=== PATIENT | female | born 1975 | race Hispanic/Latino ===

== ENCOUNTER 2017-12-19 11:21 | Emergency (ER) | payer SELFPAY ==
[2017-12-19] MEDS ORDERED: NA CHLORIDE 0.9% 1,000 ML ONE (12:00)
--- NOTE | 2017-12-19 12:19 | RAD REPORT ---
EXAM DESCRIPTION: RAD - Chest Pa And Lat (2 Views) - 12/19/2017 12:12 pm CLINICAL HISTORY: COUGH Chest pain. COMPARISON: Chest Pa And Lat (2 Views) dated 01/17/2017 FINDINGS: The lungs are clear. The heart is normal in size. No displaced fractures. IMPRESSION: No acute or concerning finding suspected.
--- NOTE | 2017-12-19 12:27 | EDPHYS ---
Physician Documentation [facility] Name: Julieta Gauthier Age: 42 yrs Sex: Female : 1975 Arrival Date: 12/19/2017 Time: 11:26 Bed 14 Private MD: None, None ED Physician Eduardo Devi HPI: 12/19 11:49 This 42 yrs old Female presents to ER via Ambulatory with complaints of Flu rn Symptoms. 11:49 The patient or guardian reports cough, flu symptoms, low-grade fever, myalgias. Onset: rn The symptoms/episode began/occurred 3 day(s) ago. Severity of symptoms: At their worst the symptoms were mild, in the emergency department the symptoms are unchanged. The patient has not experienced similar symptoms in the past. The patient has not recently seen a physician. Reports subjective fever, chills, muscle aches, cough, runny nose, congestion. 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 . 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 - Social history:: Smoking status: Patient uses tobacco products, smokes one pack cigarettes per day. - Ebola Screening: : No symptoms or risks identified at this time. - Family history:: not pertinent. - Hospitalizations: : No recent hospitalization is reported. ROS: 11:49 Constitutional: + chills, no fever Eyes: Negative for injury, pain, redness, and cardiac rn, ENT: + nasal congestion and runny nose Neck: Negative for injury, pain, and swelling, Cardiovascular: Negative for chest pain, palpitations, and edema, Respiratory: + cough Abdomen/GI: Negative for abdominal pain, nausea, vomiting, diarrhea, and constipation, MS/Extremity: Negative for injury and deformity, + muscle aches Skin: Negative for injury, rash, and discoloration, Neuro: + generalized weakness and headache Exam: 11:49 Constitutional: This is a well developed, well nourished patient who is awake, alert, rn and in no acute distress. On phone speaking full sentences when I arrived to room. Head/Face: Normocephalic, atraumatic. Eyes: Pupils equal round and reactive to light, extra-ocular motions intact. Lids and lashes normal. Conjunctiva and sclera are non-icteric and not injected. Cornea within normal limits. Periorbital areas with no swelling, redness, or edema. ENT: Absent tonsils, mild pharyngeal erythema, no stridor Neck: Trachea midline. Supple, full range of motion without nuchal rigidity, or vertebral point tenderness. No Meningismus. + non-tender cervical bilateral LAD Vital Signs: 11:39 BP 116 / 70; Pulse 88; Resp 18 S; Temp 98.7(O); Pulse Ox 100% on R/A; Weight 95.25 kg aa5 (R); Height 5 ft. 3 in. (160.02 cm) (R); Pain 10/10; 13:15 BP 120 / 74; Pulse 87; Resp 18; Pulse Ox 100% on R/A; hj 11:39 Body Mass Index 37.20 (95.25 kg, 160.02 cm) aa5 MDM: 11:42 Patient medically screened. rn 11:52 Differential Diagnosis: Bronchitis Influenza Upper Respiratory Infection Sinusitis rn Viral Syndrome Pneumonia. 11:53 Counseling: I had a detailed discussion with the patient and/or guardian regarding: rn smoking cessation. 12:25 Data reviewed: vital signs, nurses notes, lab test result(s), radiologic studies, plain rn films, and as a result, I will discharge patient. Special discussion: I discussed with the patient/guardian in detail that at this point there is no indication for admission to the hospital. It is understood, however, that if the symptoms persist or worsen the patient needs to return immediately for re-evaluation. 12/19 11:48 Order name: Flu; Complete Time: 12:25 rn 12/19 11:52 Order name: Strep rn 12/19 11:48 Order name: XRAY Chest Pa And Lat (2 Views); Complete Time: 12:25 rn 12/19 11:52 Order name: Group A Streptococcus Rapid Sc; Complete Time: 12:25 EDAZ 12/19 13:05 Order name: Throat Culture [facility] 12/19 11:48 Order name: IV Start; Complete Time: 11:58 rn Administered Medications: 11:48 Drug: NS 0.9% 1000 ml Route: IV; Rate: 1000 ml; Site: right antecubital; hj 12:28 Follow up: IV Status: Infusion continued hj Disposition: 12/19/17 12:26 Discharged to Home. Impression: Cough, Viral upper respiratory infection. - Condition is Stable. - Discharge Instructions: Upper Respiratory Infection, Adult, Viral Respiratory Infection, Cough, Adult. - Medication Reconciliation Form, Thank You Letter, Antibiotic Education, Prescription Opioid Use, Work release form form. - Follow up: Private Physician; When: As needed; Reason: Recheck today's complaints, Re-evaluation by your physician. - Problem is an ongoing problem. - Symptoms are unchanged. Signatures: Dispatcher [employer] EDEduardo Encinas MD MD rn Calderon, Audri RN RN aa5 Mk Cruz RN RN Corrections: (The following items were deleted from the chart) 13:34 12:26 12/19/2017 12:26 Discharged to Home. Impression: Cough; Viral upper respiratory hj infection. Condition is Stable. Forms are Medication Reconciliation Form, Thank You Letter, Antibiotic Education, Prescription Opioid Use. Follow up: Private Physician; When: As needed; Reason: Recheck today's complaints, Re-evaluation by your physician. Problem is an ongoing problem. Symptoms are unchanged. rn
--- NOTE | 2017-12-19 12:27 | ER ---
Nurse's Notes [facility] Name: Julieta Gauthier Age: 42 yrs Sex: Female : 1975 Arrival Date: 12/19/2017 Time: 11:26 Bed 14 Private MD: None, None Diagnosis: Cough;Viral upper respiratory infection Presentation: 12/19 11:37 Presenting complaint: Patient states: cough, congestion, runny nose, chills x 1 month aa5 ago. Pt states "I thought I was getting better and today it was worse". Pt also reports headache to whole head. Transition of care: patient was not received from another setting of care. Onset of symptoms was December 2017. Risk Assessment: Do you want to hurt yourself or someone else? Patient reports no desire to harm self or others. Initial Sepsis Screen: Does the patient meet any 2 criteria? No. Patient's initial sepsis screen is negative. Does the patient have a suspected source of infection? No. Patient's initial sepsis screen is negative. Care prior to arrival: None. 11:37 Method Of Arrival: Ambulatory aa5 11:37 Acuity: GIANNA 3 aa5 Triage Assessment: 11:42 General: Appears in no apparent distress. uncomfortable, Behavior is calm, cooperative, hj appropriate for age. Pain: Denies pain. 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 - Social history:: Smoking status: Patient uses tobacco products, smokes one pack cigarettes per day. - Ebola Screening: : No symptoms or risks identified at this time. - Family history:: not pertinent. - Hospitalizations: : No recent hospitalization is reported. Screenin:42 Abuse screen: Denies threats or abuse. Nutritional screening: No deficits noted. hj Tuberculosis screening: No symptoms or risk factors identified. Fall Risk None identified. Assessment: 11:43 General: Appears in no apparent distress. uncomfortable, Behavior is calm, cooperative, hj appropriate for age. General: chest congestion, runny nose;. Pain: Denies pain. Neuro: Level of Consciousness is awake, alert, obeys commands, Oriented to person, place, time, situation, Appropriate for age. Cardiovascular: Capillary refill < 3 seconds Patient's skin is warm and dry. Respiratory: Airway is patent Respiratory effort is even, unlabored, Respiratory pattern is regular, symmetrical. GI: No signs and/or symptoms were reported involving the gastrointestinal system. : No signs and/or symptoms were reported regarding the genitourinary system. EENT: No signs and/or symptoms were reported regarding the EENT system. Derm: No signs and/or symptoms reported regarding the dermatologic system. Musculoskeletal: No signs and/or symptoms reported regarding the musculoskeletal system. 12:27 Reassessment: returned from xray, awaiting results;. 12:36 Reassessment: Patient appears in no apparent distress at this time. awaiting fluids to be finished; Patient states feeling better. Patient states symptoms have improved. 13:14 Reassessment: fluids to be finished before D/C;. Vital Signs: 11:39 BP 116 / 70; Pulse 88; Resp 18 S; Temp 98.7(O); Pulse Ox 100% on R/A; Weight 95.25 kg aa5 (R); Height 5 ft. 3 in. (160.02 cm) (R); Pain 10/10; 13:15 BP 120 / 74; Pulse 87; Resp 18; Pulse Ox 100% on R/A; hj 11:39 Body Mass Index 37.20 (95.25 kg, 160.02 cm) aa5 ED Course: 11:26 Patient arrived in ED. mr 11:26 None, None is Private Physician. mr 11:38 Triage completed. aa5 11:38 Arm band placed on. aa5 11:41 Mk Cruz, RN is Primary Nurse. 11:42 Eduardo Devi MD is Attending Physician. rn 11:42 Patient has correct armband on for positive identification. Bed in low position. Call light in reach. 11:48 Inserted saline lock: 22 gauge in right antecubital area, using aseptic technique. 11:55 Flu Sent. [facility] 11:57 Strep Sent. [facility] 11:57 Group A Streptococcus Rapid Sc Sent. [facility] 11:57 Flu and/or RSV swab sent to lab. Strep swab sent to lab. [facility] 12:13 XRAY Chest Pa And Lat (2 Views) In Process Unspecified. EDMS Administered Medications: 11:48 Drug: NS 0.9% 1000 ml Route: IV; Rate: 1000 ml; Site: right antecubital; 12:28 Follow up: IV Status: Infusion continued Outcome: 12:26 Discharge ordered by . rn 13:34 Patient left the ED. tera Signatures: Dispatcher [employer] EDJudith Schrader Roman, MD MD rn Calderon, Audri, RN RN aa5 Mk Cruz RN RN hj Martinez, Maria [facility]
[2017-12-19 13:48] VITALS: TEMP 98.7; O2SAT 100
[2017-12-19 13:50] VITALS: BP 120/74
== END 2017-12-19 13:34 | disposition home or self-care (01) ==
LOC: ER 11:21
DX: J06.9 Acute upper respiratory infection, unspecified (principal); F17.210 Nicotine dependence, cigarettes, uncomplicated
CPT/HCPCS: 71046; 87070; 87081; 87804; 96360; 99284; J7030

== ENCOUNTER 2018-08-14 22:22 | Emergency (ER) | payer SELFPAY ==
[2018-08-15] MEDS ORDERED: KETOROLAC 30 MG/ML INJ ONE (00:11)
--- NOTE | 2018-08-15 00:15 | ER ---
Nurse's Notes [facility] Name: Julieta Gauthier Age: 43 yrs Sex: Female : 1975 Arrival Date: 08/14/2018 Time: 22:24 Bed 27 Private MD: None, None Diagnosis: Gingivitis and periodontal diseases;Pulpitis Presentation: 08/14 22:27 Presenting complaint: Patient states: lower R toothache since this am. Swelling noted aa1 to R side of face. Transition of care: patient was not received from another setting of care. Onset of symptoms was August 14, 2018. Risk Assessment: Do you want to hurt yourself or someone else? Patient reports no desire to harm self or others. Initial Sepsis Screen: Does the patient meet any 2 criteria? No. Patient's initial sepsis screen is negative. Does the patient have a suspected source of infection? No. Patient's initial sepsis screen is negative. Care prior to arrival: None. 22:27 Method Of Arrival: Ambulatory aa1 22:27 Acuity: GIANNA 4 aa1 Triage Assessment: 22:29 General: Appears in no apparent distress. uncomfortable, Behavior is calm, cooperative, aa1 appropriate for age. 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 - Social history:: Smoking status: Patient uses tobacco products, smokes one-half pack cigarettes per day. - Ebola Screening: : No symptoms or risks identified at this time. Screenin:43 Abuse screen: Denies threats or abuse. Denies injuries from another. Nutritional aa1 screening: No deficits noted. Tuberculosis screening: No symptoms or risk factors identified. Fall Risk None identified. Assessment: 22:43 General: Appears in no apparent distress. uncomfortable, Behavior is calm, cooperative, aa1 appropriate for age. Pain: Complains of pain in right cheek, right jaw and mouth Pain currently is 10 out of 10 on a pain scale. Quality of pain is described as throbbing, Pain began this morning Is continuous. Neuro: Level of Consciousness is awake, alert, obeys commands, Oriented to person, place, time, situation. Respiratory: Airway is patent Respiratory effort is even, unlabored, Respiratory pattern is regular, symmetrical. GI: No signs and/or symptoms were reported involving the gastrointestinal system. : No signs and/or symptoms were reported regarding the genitourinary system. EENT: Reports pain in mouth. Derm: Skin is intact, is healthy with good turgor, Skin is pink, warm \T\ dry. Musculoskeletal: Circulation, motion, and sensation intact. Capillary refill < 3 seconds, Swelling present in right cheek and right jaw. 08/15 00:43 Reassessment: Patient states feeling better. mg2 Vital Signs: 08/14 22:29 BP 124 / 65; Pulse 87; Resp 16; Temp 97.7; Pulse Ox 100% on R/A; Weight 95.25 kg; aa1 Height 5 ft. 3 in. (160.02 cm); Pain 10/10; 08/15 00:42 BP 122 / 78; Pulse 80; Resp 18; Temp 98; Pulse Ox 100% on R/A; Pain 2/10; mg2 08/14 22:29 Body Mass Index 37.20 (95.25 kg, 160.02 cm) aa1 ED Course: 08/14 22:24 Patient arrived in ED. mr 22:24 None, None is Private Physician. mr 22:29 Triage completed. aa1 22:29 Arm band placed on left wrist. Patient placed in waiting room, Patient notified of wait aa1 time. 22:43 Patient has correct armband on for positive identification. aa1 23:26 Beau Colmenares MD is Attending Physician. pkl 23:30 Navdeep Davis, BRIELLE is Primary Nurse. mg2 23:34 Roger Wu PA is PHCP. jr8 23:34 Beau Colmenares MD is Attending Physician. jr8 08/15 00:14 Jeb Reynoso DDS is Referral Physician. jr8 00:40 No provider procedures requiring assistance completed. mg2 00:43 Patient did not have IV access during this emergency room visit. mg2 Administered Medications: 00:01 Drug: TORadol - Ketorolac 15 mg Route: IM; Site: right deltoid; ao 00:42 Follow up: Response: No adverse reaction; Marked relief of symptoms mg2 Outcome: 00:15 Discharge ordered by MD. wilson 00:43 Discharged to home ambulatory. mg2 00:43 Condition: stable 00:43 Discharge instructions given to patient, Instructed on discharge instructions, follow up and referral plans. medication usage, Demonstrated understanding of instructions, follow-up care, medications, Prescriptions given X 2. 00:44 Patient left the ED. mg2 Signatures: Quita Johnson RN RN aa1 Beau Colmenares MD MD pkl Rivera, Mary mr Roszak, Josh, PA PA jr8 Rinku Prather RN RN ao Gardose, Michele, RN RN mg2 Corrections: (The following items were deleted from the chart) 00:43 00:40 Inserted saline lock: 20 gauge in left forearm, using aseptic technique. Blood mg2 collected. mg2
--- NOTE | 2018-08-15 00:16 | EDPHYS ---
Physician Documentation [facility] Name: Julieta Gauthier Age: 43 yrs Sex: Female : 1975 Arrival Date: 08/14/2018 Time: 22:24 Bed 27 Private MD: None, None ED Physician Beau Colmenares HPI: 08/14 23:43 This 43 yrs old Female presents to ER via Ambulatory with complaints of jr8 Toothache. 23:43 The patient presents with pain, swelling. The problem is located in the right jaw. jr8 Onset: The symptoms/episode began/occurred gradually, yesterday. Duration: The symptoms are continuous. Modifying factors: The symptoms are alleviated by nothing. Severity of symptoms: in the emergency department the symptoms a " 6" out of "10". The patient has not experienced similar symptoms in the past. The patient has not recently seen a physician. Patient reports that she has not had dental care for a long time. Last night she noticed lower gum line soreness on the right jawline. Today the pain became more severe and she noticed a foul odor and taste from her mouth. 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 - Social history:: Smoking status: Patient uses tobacco products, smokes one-half pack cigarettes per day. - Ebola Screening: : No symptoms or risks identified at this time. ROS: 23:43 Constitutional: Negative for fever, chills, and weight loss, Cardiovascular: Negative jr8 for chest pain, palpitations, and edema, Respiratory: Negative for shortness of breath, cough, wheezing, and pleuritic chest pain, Abdomen/GI: Negative for abdominal pain, nausea, vomiting, diarrhea, and constipation. 23:43 MS/Extremity: Negative for injury and deformity, Skin: Negative for injury, rash, and discoloration, Neuro: Negative for headache, weakness, numbness, tingling, and seizure. 23:43 ENT: Positive for dental pain, Gum pain Negative for ear pain, sinus pain, difficulty swallowing, difficulty handling secretions, hoarseness. Exam: 23:46 Constitutional: This is a well developed, well nourished patient who is awake, alert, jr8 and in no acute distress. Neck: Trachea midline, no thyromegaly or masses palpated, and no cervical lymphadenopathy. Supple, full range of motion without nuchal rigidity, or vertebral point tenderness. No Meningismus. Cardiovascular: Regular rate and rhythm with a normal S1 and S2. No gallops, murmurs, or rubs. Normal PMI, no JVD. No pulse deficits. Respiratory: Lungs have equal breath sounds bilaterally, clear to auscultation and percussion. No rales, rhonchi or wheezes noted. No increased work of breathing, no retractions or nasal flaring. Abdomen/GI: Soft, non-tender, with normal bowel sounds. No distension or tympany. No guarding or rebound. No evidence of tenderness throughout. Skin: Warm, dry with normal turgor. Normal color with no rashes, no lesions, and no evidence of cellulitis. MS/ Extremity: Pulses equal, no cyanosis. Neurovascular intact. Full, normal range of motion. Neuro: Awake and alert, GCS 15, oriented to person, place, time, and situation. Cranial nerves II-XII grossly intact. Motor strength 5/5 in all extremities. Sensory grossly intact. Cerebellar exam normal. Normal gait. 23:46 ENT: Ear canal(s): are normal, TM's: are normal, Nose: is normal, Mouth: is normal, no abscess, no drooling, Posterior pharynx: is normal, airway is patent, no erythema, no pooling of secretions, no swelling, Dental exam: gum swelling, that is mild, specifically in the lower right second molar (#31) and lower right third molar (#32), Voice: is normal, Breath odor: is normal. Vital Signs: 22:29 BP 124 / 65; Pulse 87; Resp 16; Temp 97.7; Pulse Ox 100% on R/A; Weight 95.25 kg; aa1 Height 5 ft. 3 in. (160.02 cm); Pain 10; 08/15 00:42 BP 122 / 78; Pulse 80; Resp 18; Temp 98; Pulse Ox 100% on R/A; Pain 2/10; mg2 08/14 22:29 Body Mass Index 37.20 (95.25 kg, 160.02 cm) aa1 MDM: 08/14 23:27 Medical screening is not applicable. pkl 23:34 Patient medically screened. jr8 23:54 Differential diagnosis: dental caries, gingivitis. Data reviewed: vital signs, nurses jr8 notes, and as a result, I will discharge patient. Counseling: I had a detailed discussion with the patient and/or guardian regarding: the historical points, exam findings, and any diagnostic results supporting the discharge/admit diagnosis, the need for outpatient follow up, for definitive care, a dentist, to return to the emergency department if symptoms worsen or persist or if there are any questions or concerns that arise at home. Awaiting: medication. Administered Medications: 08/15 00:01 Drug: TORadol - Ketorolac 15 mg Route: IM; Site: right deltoid; ao 00:42 Follow up: Response: No adverse reaction; Marked relief of symptoms mg2 Disposition: 01:13 Co-signature as Attending Physician, Beau Colmenares MD. pk Disposition: 08/15/18 00:15 Discharged to Home. Impression: Gingivitis and periodontal diseases, Pulpitis. - Condition is Stable. - Discharge Instructions: Dental Pain, Diet and Dental Disease. - Prescriptions for Amoxicillin 875 mg Oral Tablet - take 1 tablet by ORAL route every 12 hours for 10 days; 20 tablet. Tylenol- Codeine #3 300-30 mg Oral Tablet - take 2 tablets by ORAL route every 6 hours As needed; 10 tablet. - Medication Reconciliation Form, Thank You Letter, Antibiotic Education, Prescription Opioid Use form. - Follow up: Private Physician; When: 2 - 3 days; Reason: Recheck today's complaints, Continuance of care, Re-evaluation by your physician. Follow up: Jeb Reynoso DDS; When: 1 - 2 days; Reason: Recheck today's complaints, Continuance of care, Re-evaluation by your physician. - Problem is new. - Symptoms are unchanged. Signatures: Quita Johnson RN RN aa1 Beau Colmenares MD MD pkl Roger Wu PA PA jr8 Rinku Prather RN RN ao Navdeep Davis RN RN mg2 Corrections: (The following items were deleted from the chart) 00:44 00:15 08/15/2018 00:15 Discharged to Home. Impression: Gingivitis and periodontal mg2 diseases; Pulpitis. Condition is Stable. Forms are Medication Reconciliation Form, Thank You Letter, Antibiotic Education, Prescription Opioid Use. Follow up: Private Physician; When: 2 - 3 days; Reason: Recheck today's complaints, Continuance of care, Re-evaluation by your physician. Follow up: Jeb Reynoso; When: 1 - 2 days; Reason: Recheck today's complaints, Continuance of care, Re-evaluation by your physician. Problem is new. Symptoms are unchanged. jr8
[2018-08-15 00:53] VITALS: O2SAT 100
[2018-08-15 00:55] VITALS: BP 122/78; TEMP 98
== END 2018-08-15 00:44 | disposition home or self-care (01) ==
LOC: ER 22:22
DX: K05.10 Chronic gingivitis, plaque induced (principal); K04.01 Reversible pulpitis; K05.5 Other periodontal diseases; F17.210 Nicotine dependence, cigarettes, uncomplicated
CPT/HCPCS: 96372; 99283

== ENCOUNTER 2018-10-15 14:58 | Emergency (ER) | payer SELFPAY ==
[2018-10-15] MEDS ORDERED: CYCLOBENZAPRINE 10 MG TAB ONE (16:04)
[2018-10-15] MEDS ORDERED: HYDROCODONE/APAP 5/325 MG TAB ONE (16:05)
--- NOTE | 2018-10-15 16:29 | EDPHYS ---
Physician Documentation [facility] Name: Julieta Gauthier Age: 43 yrs Sex: Female : 1975 Arrival Date: 10/15/2018 Time: 15:03 Bed 11 Private MD: ED Physician Terence Ruelas HPI: 10/15 15:26 This 43 yrs old Female presents to ER via Wheelchair with complaints of Foot pm1 Pain. 15:26 The patient presents with pain. pm1 15:26 The complaints affect the right heel and heel of left foot. Context: The problem was pm1 sustained at an unknown site, resulted from an unknown cause, the patient is able to ambulate, Problem is a result from a previous injury: No. Onset: The symptoms/episode began/occurred 3 week(s) ago. Modifying factors: The symptoms are alleviated by nothing. the symptoms are aggravated by weight bearing. Associated signs and symptoms: Pertinent positives: of the Left calf tenderness, Pertinent negatives numbness, swelling, tingling. Treatment prior to arrival includes: no previous treatment. Severity of symptoms: in the emergency department the symptoms are actually worse. The patient has experienced a previous episode, many years ago, and the symptoms today are exactly the same, self resolved. The patient has not recently seen a physician. 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 - Social history:: Smoking status: Patient uses tobacco products, smokes one-half pack cigarettes per day. - Ebola Screening: : No symptoms or risks identified at this time. ROS: 15:26 Constitutional: Negative for fever, chills, and weight loss, Eyes: Negative for injury, pm1 pain, redness, and discharge, ENT: Negative for injury, pain, and discharge, Neck: Negative for injury, pain, and swelling, Cardiovascular: Negative for chest pain, palpitations, and edema, Respiratory: Negative for shortness of breath, cough, wheezing, and pleuritic chest pain, Abdomen/GI: Negative for abdominal pain, nausea, vomiting, diarrhea, and constipation, Back: Negative for injury and pain, : Negative for injury, bleeding, discharge, and swelling. 15:26 Skin: Negative for injury, rash, and discoloration, Neuro: Negative for headache, weakness, numbness, tingling, and seizure. 15:26 MS/extremity: Positive for pain, of the right heel and heel of left foot and left calf, Negative for decreased range of motion, deformity, paresthesias, swelling, tingling. Exam: 15:26 Constitutional: This is a well developed, well nourished patient who is awake, alert, pm1 and in no acute distress. Head/Face: Normocephalic, atraumatic. Neck: Trachea midline, no thyromegaly or masses palpated, and no cervical lymphadenopathy. Supple, full range of motion without nuchal rigidity, or vertebral point tenderness. No Meningismus. Chest/axilla: Normal chest wall appearance and motion. Nontender with no deformity. No lesions are appreciated. Cardiovascular: Regular rate and rhythm with a normal S1 and S2. No gallops, murmurs, or rubs. Normal PMI, no JVD. No pulse deficits. Respiratory: Lungs have equal breath sounds bilaterally, clear to auscultation and percussion. No rales, rhonchi or wheezes noted. No increased work of breathing, no retractions or nasal flaring. Back: No spinal tenderness. No costovertebral tenderness. Full range of motion. Skin: Warm, dry with normal turgor. Normal color with no rashes, no lesions, and no evidence of cellulitis. 15:26 Musculoskeletal/extremity: Extremities: grossly normal except: noted in the left calf: tenderness, noted in the heel of left foot: tenderness, noted in the right heel: tenderness. Vital Signs: 15:11 BP 137 / 77; Pulse 86; Resp 16; Temp 98.1; Pulse Ox 98% on R/A; Weight 90.72 kg; Height la1 5 ft. 3 in. (160.02 cm); Pain 10/10; 15:11 Body Mass Index 35.43 (90.72 kg, 160.02 cm) la1 MDM: 15:19 Patient medically screened. pm1 16:27 Data reviewed: vital signs. Data interpreted: Pulse oximetry: on room air is 98 %. pm1 Interpretation: normal. Counseling: I had a detailed discussion with the patient and/or guardian regarding: the historical points, exam findings, and any diagnostic results supporting the discharge/admit diagnosis, radiology results, the need for outpatient follow up, for definitive care, a supervisor cab, to return to the emergency department if symptoms worsen or persist or if there are any questions or concerns that arise at home. 10/15 15:25 Order name: Foot Right 3 View XRAY; Complete Time: 16:34 pm1 10/15 15:25 Order name: Foot Left 3 View XRAY; Complete Time: 16:34 pm1 10/15 15:25 Order name: Extremity Venous Uni Ltd US; Complete Time: 16:34 pm1 Administered Medications: 16:02 Drug: [place] 5 mg-325 mg 1 tabs Route: PO; em 16:49 Follow up: Response: No adverse reaction; Pain is decreased la1 16:02 Drug: Flexeril 10 mg Route: PO; em 16:49 Follow up: Response: No adverse reaction; Pain is decreased la1 Disposition: 18:57 Co-signature as Attending Physician, Terence Ruelas MD. ma2 Disposition: 10/15/18 16:29 Discharged to Home. Impression: Pain in left foot, Pain in right foot. - Condition is Stable. - Discharge Instructions: Heel Spur, Plantar Fasciitis, Foot Pain. - Prescriptions for Tylenol- Codeine #3 300-30 mg Oral Tablet - take 2 tablets by ORAL route every 6 hours As needed; 20 tablet. Cyclobenzaprine 10 mg Oral Tablet - take 1 tablet by ORAL route every 8 hours As needed; 30 tablet. - Medication Reconciliation Form, Thank You Letter, Antibiotic Education, Prescription Opioid Use form. - Follow up: Emergency Department; When: As needed; Reason: Worsening of condition. Follow up: Private Physician; When: 2 - 3 days; Reason: Recheck today's complaints, Continuance of care, Re-evaluation by your physician. - Problem is new. - Symptoms have improved. Signatures: Dispatcher [employer] Henrique Mariscal, COTTON HEADER COTTON HEADER Lan Tinajero RN RN la1 Blake Clement, VP INTEGRITY VP INTEGRITY pm1 Terence Ruelas MD MD ma2 Corrections: (The following items were deleted from the chart) 16:49 16:29 10/15/2018 16:29 Discharged to Home. Impression: Pain in left foot; Pain in right la1 foot. Condition is Stable. Forms are Medication Reconciliation Form, Thank You Letter, Antibiotic Education, Prescription Opioid Use. Follow up: Emergency Department; When: As needed; Reason: Worsening of condition. Follow up: Private Physician; When: 2 - 3 days; Reason: Recheck today's complaints, Continuance of care, Re-evaluation by your physician. Problem is new. Symptoms have improved. pm1
--- NOTE | 2018-10-15 16:29 | ER ---
Nurse's Notes [facility] Name: Julieta Gauthier Age: 43 yrs Sex: Female : 1975 Arrival Date: 10/15/2018 Time: 15:03 Bed 11 Private MD: Diagnosis: Pain in left foot;Pain in right foot Presentation: 10/15 15:09 Presenting complaint: Patient states: I have pain in my left heel when I step, it la1 happened 1/2 a year ago and got better but its been hurting for 2-3 weeks now and it is getting worse. Transition of care: patient was not received from another setting of care. Onset of symptoms was October 15, 2018. Risk Assessment: Do you want to hurt yourself or someone else? Patient reports no desire to harm self or others. Initial Sepsis Screen: Does the patient meet any 2 criteria? No. Patient's initial sepsis screen is negative. Does the patient have a suspected source of infection? No. Patient's initial sepsis screen is negative. Care prior to arrival: None. 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 - Social history:: Smoking status: Patient uses tobacco products, smokes one-half pack cigarettes per day. - Ebola Screening: : No symptoms or risks identified at this time. Screenin:12 Abuse screen: Denies threats or abuse. Nutritional screening: No deficits noted. la1 Tuberculosis screening: No symptoms or risk factors identified. Fall Risk None identified. Assessment: 15:11 General: Appears in no apparent distress. Behavior is calm, cooperative. Pain: la1 Complains of pain in heel of left foot. Neuro: Level of Consciousness is awake, alert, obeys commands. Cardiovascular: Capillary refill < 3 seconds Patient's skin is warm and dry. Cardiovascular: Respiratory: Airway is patent Respiratory effort is even, unlabored, Respiratory pattern is regular, symmetrical. GI: No signs and/or symptoms were reported involving the gastrointestinal system. : No signs and/or symptoms were reported regarding the genitourinary system. Derm: Skin is pink, warm \T\ dry. Vital Signs: 15:11 BP 137 / 77; Pulse 86; Resp 16; Temp 98.1; Pulse Ox 98% on R/A; Weight 90.72 kg; Height la1 5 ft. 3 in. (160.02 cm); Pain 10/10; 15:11 Body Mass Index 35.43 (90.72 kg, 160.02 cm) la1 ED Course: 15:03 Patient arrived in ED. mr 15:10 Triage completed. la1 15:11 Arm band placed on right wrist. la1 15:12 Patient has correct armband on for positive identification. la1 15:19 Blake Clement NP is PHCP. pm1 15:19 Terence Ruelas MD is Attending Physician. pm1 16:05 Foot Right 3 View XRAY In Process Unspecified. EDMS 16:05 Foot Left 3 View XRAY In Process Unspecified. EDMS 16:14 Ultrasound completed. Patient tolerated well. sg3 16:16 Extremity Venous Uni Ltd US In Process Unspecified. EDMS 16:48 Lan Chambers RN is Primary Nurse. la1 16:48 No provider procedures requiring assistance completed. Patient did not have IV access la1 during this emergency room visit. Administered Medications: 16:02 Drug: [place] 5 mg-325 mg 1 tabs Route: PO; em 16:49 Follow up: Response: No adverse reaction; Pain is decreased la1 16:02 Drug: Flexeril 10 mg Route: PO; em 16:49 Follow up: Response: No adverse reaction; Pain is decreased la1 Outcome: 16:29 Discharge ordered by . pm1 16:48 Discharged to home ambulatory. la1 16:48 Condition: stable 16:48 Discharge instructions given to patient, Instructed on discharge instructions, follow up and referral plans. medication usage, Demonstrated understanding of instructions, follow-up care, medications, Prescriptions given X 2. 16:49 Patient left the ED. la1 Signatures: Dispatcher [employer] EDNJ Corona Hui Vidal, Henrique, BIOLOGICAL INSPECTOR BIOLOGICAL INSPECTOR em Lan Chambers RN RN la1 Blake Clement NP JUTE BAG CUTTING MACHINE OPERATOR pm1 Duyen Diane sg3
--- NOTE | 2018-10-15 16:31 | RAD REPORT ---
EXAM DESCRIPTION: US - Extremity Venous Uni Ltd - 10/15/2018 4:16 pm CLINICAL HISTORY: Right leg pain COMPARISON: None. TECHNIQUE: Real-time sonographic evaluation of the right lower extremity deep venous systems was per formed. FINDINGS: Normal compressibility, flow augmentation, phasic flow and spontaneous flow are identified in the right lower extremity common femoral, superficial femoral, popliteal and posterior tibial vei ns. No intraluminal filling defects seen. IMPRESSION: No DVT in the right lower extremity.
--- NOTE | 2018-10-15 16:31 | RAD REPORT ---
EXAM DESCRIPTION: RAD - Foot Right 3 View - 10/15/2018 4:04 pm CLINICAL HISTORY: Nontraumatic right foot pain COMPARISON: None. FINDINGS: No fracture, dislocation or periosteal reaction. No acute bone or joint finding. Small porter ntar spur is present. No air or foreign body in the soft tissues. IMPRESSION: Negative right foot examination for acute or significant finding.
--- NOTE | 2018-10-15 16:32 | RAD REPORT ---
EXAM DESCRIPTION: RAD - Foot Left 3 View - 10/15/2018 4:04 pm CLINICAL HISTORY: Nontraumatic left foot pain COMPARISON: None. FINDINGS: No fracture, dislocation or periosteal reaction. No acute or destructive bony process. Sm all plantar spur is present. No air or foreign body in the soft tissues. IMPRESSION: Negative left foot examination for acute or significant finding. Small plantar spur pres ent.
[2018-10-15 17:00] VITALS: BP 137/77; TEMP 98.1; O2SAT 98
== END 2018-10-15 16:49 | disposition home or self-care (01) ==
LOC: ER 14:58
DX: M79.672 Pain in left foot (principal); M79.671 Pain in right foot; F17.210 Nicotine dependence, cigarettes, uncomplicated
CPT/HCPCS: 93971; 99283

== ENCOUNTER 2019-01-22 21:04 | Emergency (ER) | payer SELFPAY ==
[2019-01-22] MEDS ORDERED: dexAMETHasone 10 MG/ML VIAL ONE (22:20)
--- NOTE | 2019-01-22 22:38 | EDPHYS ---
Physician Documentation [facility] Name: Julieta Gauthier Age: 44 yrs Sex: Female : 1975 Arrival Date: 01/22/2019 Time: 21:08 Bed 20 Private MD: ED Physician Beau Colmenares HPI: 01/22 22:06 This 44 yrs old Female presents to ER via Ambulatory with complaints of Eye pkl Pain. 22:06 The patient is experiencing pain, redness, itching. Onset: The symptoms/episode pkl began/occurred 2.5 week(s) ago. Associated signs and symptoms: Pertinent positives: sinus congestion, sneezing. 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 - Social history:: Smoking status: Patient uses tobacco products, smokes one pack cigarettes per day. - Ebola Screening: : No symptoms or risks identified at this time. ROS: 22:06 ENT: Negative for injury, pain, and discharge. pkl 22:06 Eyes: Positive for itching, pain, redness. 22:06 Neck: Negative for stiffness. 22:06 Cardiovascular: Negative for chest pain. 22:06 Respiratory: Negative for cough, shortness of breath. 22:06 Abdomen/GI: Negative for abdominal pain, nausea, vomiting, and diarrhea. 22:06 Back: Negative for acute changes. 22:06 : Negative for urinary symptoms. 22:06 MS/extremity: Negative for acute changes. 22:06 Skin: Negative for rash. 22:06 Neuro: Negative for altered mental status, loss of consciousness. Exam: 22:06 Visual Acuity: I have reviewed the nursing documentation. pkl 22:06 Head/Face: Normocephalic, atraumatic. 22:06 Eyes: Pupils: no acute changes, Conjunctiva: injected, in the left eye, Corneas: are normal. 22:06 Neck: Exam negative for nuchal rigidity. 22:06 Chest/axilla: Exam negative for acute changes. 22:06 Cardiovascular: Rate: normal, Rhythm: regular. 22:06 Respiratory: the patient does not display signs of respiratory distress, Respirations: normal, Breath sounds: are clear throughout. 22:06 Abdomen/GI: Exam negative for acute changes. 22:06 Back: Exam negative for acute changes. 22:06 : Exam negative for acute changes. 22:06 Musculoskeletal/extremity: Exam is negative for acute changes. 22:06 Skin: Exam negative for rash. 22:06 Neuro: Orientation: is normal, Mentation: is normal, Cranial nerves: grossly normal, Motor: is normal. Vital Signs: 21:29 BP 114 / 75; Pulse 95; Resp 16 S; Temp 99.4(O); Pulse Ox 99% on R/A; Weight 92.53 kg bb (R); Height 5 ft. 3 in. (160.02 cm) (R); Pain 7/10; 22:46 BP 100 / 71; Pulse 83; Resp 18; Pulse Ox 99% on R/A; wh 21:29 Body Mass Index 36.14 (92.53 kg, 160.02 cm) Visual Acuity: 21:37 Left Eye Visual acuity 20/15, Pupil size 5 mm, ; Right Eye Visual acuity 20/15, Pupil bb size 5 mm, ; Both Eyes Visual acuity 20/15; Without Lenses; MDM: 21:57 Patient medically screened. pkl 22:33 Data reviewed: vital signs, nurses notes. pk 01/22 22:11 Order name: Visual Acuity; Complete Time: 22:17 pk Administered Medications: 22:29 Drug: Decadron 10 mg Route: IM; Site: right gluteus; 22:47 Follow up: Response: No adverse reaction Disposition: 01/22/19 22:37 Discharged to Home. Impression: Left conjunctivitis. Allergy. - Condition is Stable. - Prescriptions for Keflex 500 mg Oral Capsule - take 1 capsule by ORAL route every 6 hours for 7 days; 28 capsule. - Medication Reconciliation Form, Thank You Letter, Antibiotic Education, Prescription Opioid Use form. - Follow up: Ana Wilkinson MD; When: 2 - 3 days; Reason: Re-evaluation by your physician. - Problem is new. - Symptoms are unchanged. Signatures: Beau Colmenares MD MD pk Mariajose Torres RN RN bb Isak Ayala Corrections: (The following items were deleted from the chart) 22:49 22:37 01/22/2019 22:37 Discharged to Home. Impression: Left conjunctivitis. Allergy. Condition is Stable. Forms are Medication Reconciliation Form, Thank You Letter, Antibiotic Education, Prescription Opioid Use. Follow up: Ana Wilkinson; When: 2 - 3 days; Reason: Re-evaluation by your physician. Problem is new. Symptoms are unchanged. pkl
--- NOTE | 2019-01-22 22:38 | ER ---
Nurse's Notes [facility] Name: Julieta Gauthier Age: 44 yrs Sex: Female : 1975 Arrival Date: 01/22/2019 Time: 21:08 Bed 20 Private MD: Diagnosis: Left conjunctivitis. Allergy Presentation: 01/22 21:26 Presenting complaint: Patient states: she has been having left eye pain x 2.5 weeks it bb started off like a stye but it is itchy and burning and watering now denies any loss of vision. Transition of care: patient was not received from another setting of care. Mechanism of Injury: No Mechanism of Injury. The patient denies any loss of vision. Onset of symptoms was January 04, 2019. Risk Assessment: Do you want to hurt yourself or someone else? Patient reports no desire to harm self or others. Initial Sepsis Screen: Does the patient meet any 2 criteria? No. Patient's initial sepsis screen is negative. Does the patient have a suspected source of infection? No. Patient's initial sepsis screen is negative. Care prior to arrival: None. 21:26 Method Of Arrival: Ambulatory bb 21:26 Acuity: GIANNA 4 bb Triage Assessment: 21:29 General: Appears in no apparent distress. uncomfortable, Behavior is calm, cooperative. bb Pain: Complains of pain in left eye Pain currently is 7 out of 10 on a pain scale. EENT: left periorbital area reddened and thickened. Neuro: Level of Consciousness is awake, alert, obeys commands, Oriented to person, place, time, situation. Cardiovascular: No deficits noted. Respiratory: Respiratory effort is even, unlabored, Respiratory pattern is regular. Derm: Rash noted that is red, raised, left periorbital area Reports pain. Musculoskeletal: Circulation, motion, and sensation intact. 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 - Social history:: Smoking status: Patient uses tobacco products, smokes one pack cigarettes per day. - Ebola Screening: : No symptoms or risks identified at this time. Screenin:51 Abuse screen: Denies threats or abuse. Denies injuries from another. Nutritional wh screening: No deficits noted. Tuberculosis screening: No symptoms or risk factors identified. Fall Risk None identified. Assessment: 21:51 General: Appears in no apparent distress. comfortable, Behavior is calm, cooperative, wh appropriate for age. Pain: Complains of pain in left eye Pain does not radiate. Pain currently is 7 out of 10 on a pain scale. Quality of pain is described as aching, Pain began 2 weeks ago. Neuro: Level of Consciousness is awake, alert, obeys commands. Cardiovascular: Capillary refill < 3 seconds. Respiratory: Airway is patent Respiratory effort is even, unlabored, Respiratory pattern is regular, symmetrical. GI: Abdomen is flat, non-distended. : No signs and/or symptoms were reported regarding the genitourinary system. EENT: Eyes Redness on L eye. Sclera/Cornea. Derm: Skin is intact, is healthy with good turgor, Skin is pink, warm \T\ dry. normal. Musculoskeletal: Circulation, motion, and sensation intact. 22:45 Reassessment: Patient appears in no apparent distress at this time. No changes from previously documented assessment. Patient and/or family updated on plan of care and expected duration. Pain level reassessed. Patient is alert, oriented x 3, equal unlabored respirations, skin warm/dry/pink. Vital Signs: 21:29 BP 114 / 75; Pulse 95; Resp 16 S; Temp 99.4(O); Pulse Ox 99% on R/A; Weight 92.53 kg bb (R); Height 5 ft. 3 in. (160.02 cm) (R); Pain 7/10; 22:46 BP 100 / 71; Pulse 83; Resp 18; Pulse Ox 99% on R/A; wh 21:29 Body Mass Index 36.14 (92.53 kg, 160.02 cm) bb Visual Acuity: 21:37 Left Eye Visual acuity 20/15, Pupil size 5 mm, ; Right Eye Visual acuity 20/15, Pupil bb size 5 mm, ; Both Eyes Visual acuity 20/15; Without Lenses; ED Course: 21:08 Patient arrived in ED. ds1 21:28 Triage completed. bb 21:29 Arm band placed on Patient placed in an exam room, on a stretcher, on pulse oximetry. 21:36 Isak Ayala is Primary Nurse. 21:51 Patient has correct armband on for positive identification. Bed in low position. Call light in reach. Side rails up X 1. Pulse ox on. NIBP on. 21:57 Beau Colmenares MD is Attending Physician. pkl 22:35 Ana Wilkinson MD is Referral Physician. pk 22:48 No provider procedures requiring assistance completed. Patient did not have IV access during this emergency room visit. Administered Medications: 22:29 Drug: Decadron 10 mg Route: IM; Site: right gluteus; 22:47 Follow up: Response: No adverse reaction Outcome: 22:37 Discharge ordered by . pk 22:48 Discharged to home ambulatory, with family. 22:48 Condition: good 22:48 Discharge instructions given to patient, Instructed on discharge instructions, follow up and referral plans. medication usage, POC Left Conjunctivitis Demonstrated understanding of instructions, follow-up care, POC Prescriptions given X 2. 22:49 Patient left the ED. Signatures: Beau Colmenares MD MD pkDaylin Fernandez ds1 Mariajose Torres RN RN bb Isak Ayala Corrections: (The following items were deleted from the chart) 22:48 22:46 Pulse 83bpm; Resp 18bpm; Pulse Ox 99% RA; [facility]
[2019-01-22 23:41] VITALS: TEMP 99.4; O2SAT 99
[2019-01-22 23:42] VITALS: BP 100/71
== END 2019-01-22 22:49 | disposition home or self-care (01) ==
LOC: ER 21:04
DX: H10.9 Unspecified conjunctivitis (principal); T78.40XA Allergy, unspecified, initial encounter; X58.XXXA Exposure to other specified factors, initial encounter; F17.210 Nicotine dependence, cigarettes, uncomplicated
CPT/HCPCS: 96372; 99283; J1100

== ENCOUNTER 2019-02-14 16:01 | Emergency (ER) | payer SELFPAY ==
--- NOTE | 2019-02-14 18:25 | EDPHYS ---
Physician Documentation [facility] Name: Julieta Gauthier Age: 44 yrs Sex: Female : 1975 Arrival Date: 02/14/2019 Time: 16:02 Bed 23 Private MD: ED Physician Reece Astorga HPI: 02/14 18:33 This 44 yrs old Female presents to ER via Ambulatory with complaints of Eye snw Problem, Ear Pain. 18:33 The patient is experiencing irritation around left eye, to both eyes, left greater than snw right. Onset: The symptoms/episode began/occurred gradually, 1 month(s) ago, and became persistent. Duration: the symptoms are continuous. Associated signs and symptoms: Pertinent positives: None. Patient does not utilize any form of vision correction. Severity of symptoms: At their worst the symptoms were moderate. The patient has experienced a previous episode, last month. The patient has not recently seen a physician. 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 - Social history:: Smoking status: Patient uses tobacco products, 4 cigarettes a day . - Ebola Screening: : No symptoms or risks identified at this time. ROS: 18:29 Constitutional: Negative for fever, chills, and weight loss, Neck: Negative for injury, snw pain, and swelling, Cardiovascular: Negative for chest pain, palpitations, and edema, Respiratory: Negative for shortness of breath, cough, wheezing, and pleuritic chest pain, Abdomen/GI: Negative for abdominal pain, nausea, vomiting, diarrhea, and constipation, Back: Negative for injury and pain, : Negative for injury, bleeding, discharge, and swelling, MS/Extremity: Negative for injury and deformity, Skin: Negative for injury, rash, and discoloration, Neuro: Negative for headache, weakness, numbness, tingling, and seizure, Psych: Negative for depression, anxiety, suicide ideation, homicidal ideation, and hallucinations. 18:29 Eyes: Positive for itching, swelling, of the right inner canthus, left upper eyelid, left outer canthus, left inner canthus and left lower eyelid. 18:29 ENT: Positive for hearing feels clogged, blowing noise. . Exam: 18:29 Constitutional: This is a well developed, well nourished patient who is awake, alert, snw and in no acute distress. ENT: Nares patent. No nasal discharge, no septal abnormalities noted. Tympanic membranes are normal and external auditory canals are clear. Oropharynx with no redness, swelling, or masses, exudates, or evidence of obstruction, uvula midline. Mucous membranes moist. Neck: Trachea midline, no thyromegaly or masses palpated, and no cervical lymphadenopathy. Supple, full range of motion without nuchal rigidity, or vertebral point tenderness. No Meningismus. Chest/axilla: Normal chest wall appearance and motion. Nontender with no deformity. No lesions are appreciated. Cardiovascular: Regular rate and rhythm with a normal S1 and S2. No gallops, murmurs, or rubs. Normal PMI, no JVD. No pulse deficits. Respiratory: Lungs have equal breath sounds bilaterally, clear to auscultation and percussion. No rales, rhonchi or wheezes noted. No increased work of breathing, no retractions or nasal flaring. Abdomen/GI: Soft, non-tender, with normal bowel sounds. No distension or tympany. No guarding or rebound. No evidence of tenderness throughout. Back: No spinal tenderness. No costovertebral tenderness. Full range of motion. Skin: Warm, dry with normal turgor. Normal color with no rashes, no lesions, and no evidence of cellulitis. MS/ Extremity: Pulses equal, no cyanosis. Neurovascular intact. Full, normal range of motion. Neuro: Awake and alert, GCS 15, oriented to person, place, time, and situation. Cranial nerves II-XII grossly intact. Motor strength 5/5 in all extremities. Sensory grossly intact. Cerebellar exam normal. Normal gait. Psych: Awake, alert, with orientation to person, place and time. Behavior, mood, and affect are within normal limits. 18:29 Head/face: Noted is swelling, that is mild, crusty, irritated, dry skin surrounding left eye, + chalazion to left upper eyelid, . Vital Signs: 16:17 BP 114 / 69; Pulse 90; Resp 18 S; Temp 97.5(TE); Pulse Ox 99% on R/A; Weight 91.63 kg aa5 (R); Height 5 ft. 3 in. (160.02 cm) (R); 16:17 Body Mass Index 35.78 (91.63 kg, 160.02 cm) aa5 MDM: 17:22 Patient medically screened. snw 18:32 Data reviewed: vital signs, nurses notes. Data interpreted: Pulse oximetry: on room air snw is 99 %. Interpretation: normal. Counseling: I had a detailed discussion with the patient and/or guardian regarding: the historical points, exam findings, and any diagnostic results supporting the discharge/admit diagnosis, the need for outpatient follow up, to return to the emergency department if symptoms worsen or persist or if there are any questions or concerns that arise at home. Special discussion: Based on the history and exam findings, there is no indication for further emergent testing or inpatient evaluation. I discussed with the patient/guardian the need to see the bike assembler for further evaluation of the symptoms. I discussed with the patient/guardian the need to see the ENT specialist for further evaluation of the symptoms. I discussed with the patient/guardian the need to see the primary care provider for further evaluation of the symptoms. Administered Medications: 18:31 Drug: Pepcid 20 mg Route: PO; sg 18:31 Drug: ZyrTEC - Cetirizine 10 mg Route: PO; sg 18:32 Drug: predniSONE 20 mg Route: PO; sg 18:50 Drug: ERYTHromycin Ointment 1 application Route: Ophthalmic; Site: both eyes; sg Disposition: 02/15 08:17 Co-signature as Attending Physician, Reece Astorga MD I agree with the assessment and kdr plan of care. Disposition: 02/14/19 18:24 Discharged to Home. Impression: Allergic dermatitis of eyelid, Otalgia, bilateral. - Condition is Stable. - Discharge Instructions: Contact Dermatitis, Serous Otitis Media. - Prescriptions for Zyrtec 10 mg Oral Tablet - take 1 tablet by ORAL route once daily As needed; 20 tablet. Prednisone 20 mg Oral Tablet - take 2 tablet by ORAL route once daily for 5 days; 10 tablet. Gentamicin 0.3 % (3 mg/gram) Ophthalmic Ointment - apply 0.5 inch by OPHTHALMIC route 2-3 times daily for 7 days; 3.5 gram. Pepcid 20 mg Oral Tablet - take 1 tablet by ORAL route once daily; 20 tablet. - Medication Reconciliation Form, Thank You Letter, Antibiotic Education, Prescription Opioid Use form. - Follow up: Private Physician; When: 2 - 3 days; Reason: Recheck today's complaints, Continuance of care, Re-evaluation by your physician. Follow up: Fiorella Ac MD; When: 1 week; Reason: Recheck today's complaints, Continuance of care. - Notes: Ocusoft - Eyelid scrub Signatures: Rubén Corona, RN RN sg Reece Astorga MD MD [facility] Karishma Laura, WOOL SORTER-C WOOL SORTER-Csnw Maria Eugenia Freeman, RN RN aa5 Corrections: (The following items were deleted from the chart) 02/14 19:01 18:24 02/14/2019 18:24 Discharged to Home. Impression: Allergic dermatitis of eyelid; sg Otalgia, bilateral. Condition is Stable. Forms are Medication Reconciliation Form, Thank You Letter, Antibiotic Education, Prescription Opioid Use. Follow up: Private Physician; When: 2 - 3 days; Reason: Recheck today's complaints, Continuance of care, Re-evaluation by your physician. Follow up: Fiorella Ac; When: 1 week; Reason: Recheck today's complaints, Continuance of care. snw
--- NOTE | 2019-02-14 18:25 | ER ---
Nurse's Notes [facility] Name: Julieta Gauthier Age: 44 yrs Sex: Female : 1975 Arrival Date: 02/14/2019 Time: 16:02 Bed 23 Private MD: Diagnosis: Allergic dermatitis of eyelid;Otalgia, bilateral Presentation: 02/14 16:14 Presenting complaint: Patient states: "I came here a few weeks ago for my left eye and aa5 they gave me cephalexin and eye drops (Neomycin/polymyxin/dexamethasone) and I finished them and it went away for a couple of weeks but it came back a few days ago". pt also states "my ears feels like I am in a tunnel with a bunch of wind". Transition of care: patient was not received from another setting of care. Onset of symptoms was February 2019. Risk Assessment: Do you want to hurt yourself or someone else? Patient reports no desire to harm self or others. Initial Sepsis Screen: Does the patient meet any 2 criteria? No. Patient's initial sepsis screen is negative. Does the patient have a suspected source of infection? No. Patient's initial sepsis screen is negative. Care prior to arrival: None. 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 - Social history:: Smoking status: Patient uses tobacco products, 4 cigarettes a day . - Ebola Screening: : No symptoms or risks identified at this time. Assessment: 18:10 General: Appears in no apparent distress. well groomed, well developed, well nourished, sg Behavior is calm, cooperative, appropriate for age. Pain: Complains of pain in right eye, right ear, left ear and left eye Quality of pain is described as aching. Neuro: Level of Consciousness is awake, alert, obeys commands. Cardiovascular: Capillary refill is brisk in bilateral fingers Patient's skin is warm and dry. Chest pain is denied. Respiratory: Airway is patent Respiratory effort is even, unlabored, Respiratory pattern is regular, symmetrical. GI: Abdomen is round non-distended. : No signs and/or symptoms were reported regarding the genitourinary system. EENT: Sclera/Cornea are reddened in right eye and left eye Nares are clear bilaterally Oral mucosa is moist. Derm: Skin is pink, warm \\T\\ dry. Musculoskeletal: Circulation, motion, and sensation intact. Range of motion: intact in all extremities. Vital Signs: 16:17 BP 114 / 69; Pulse 90; Resp 18 S; Temp 97.5(TE); Pulse Ox 99% on R/A; Weight 91.63 kg aa5 (R); Height 5 ft. 3 in. (160.02 cm) (R); 16:17 Body Mass Index 35.78 (91.63 kg, 160.02 cm) aa5 ED Course: 16:02 Patient arrived in ED. as 16:02 Karishma Laura [facility]C [facility] snw 16:02 Reece Astorga MD is Attending Physician. snw 16:14 Arm band placed on. aa5 16:16 Triage completed. aa5 18:05 Rubén Corona, RN is Primary Nurse. sg 18:24 Fiorella Ac MD is Referral Physician. snw Administered Medications: 18:31 Drug: Pepcid 20 mg Route: PO; sg 18:31 Drug: ZyrTEC - Cetirizine 10 mg Route: PO; sg 18:32 Drug: predniSONE 20 mg Route: PO; sg 18:50 Drug: ERYTHromycin Ointment 1 application Route: Ophthalmic; Site: both eyes; sg Outcome: 18:24 Discharge ordered by . snw 18:50 Discharged to home ambulatory, with family. sg 18:50 Condition: good 18:50 Discharge instructions given to patient, Instructed on discharge instructions, follow up and referral plans. safety practices, Demonstrated understanding of instructions, follow-up care, medications, Prescriptions given X 4. 19:01 Patient left the ED. sg Signatures: Rubén Corona RN RN Karishma Laura FNP-C FNP-Lili Dutta Audri, RN RN aa5 Corrections: (The following items were deleted from the chart) 16:19 16:17 BP 94 / 78; Pulse 90bpm; Resp 18bpm; Spontaneous; Pulse Ox 99% RA; Temp 97.5F aa5 Temporal; 91.63 kg Reported; Height 5 ft. 3 in. Reported; BMI: 35.7; aa5
[2019-02-14] MEDS ORDERED: CETIRIZINE HCL 5 MG TABLET ONE (18:26)
[2019-02-14] MEDS ORDERED: FAMOTIDINE 20 MG TAB ONE (18:27)
[2019-02-14] MEDS ORDERED: predniSONE 10 MG TAB ONE (18:27)
[2019-02-14] MEDS ORDERED: ERYTHROMYCIN 1 APPL/1 GM TUBE EACH EYE ONE (19:00)
[2019-02-14 19:11] VITALS: BP 114/69; TEMP 97.5; O2SAT 99
== END 2019-02-14 19:01 | disposition home or self-care (01) ==
LOC: ER 16:01
DX: L23.9 Allergic contact dermatitis, unspecified cause (principal); Z72.0 Tobacco use
CPT/HCPCS: 99283; J7512

== ENCOUNTER 2019-03-28 19:33 | Emergency (ER) | payer SELFPAY ==
--- NOTE | 2019-03-28 21:26 | ER ---
Nurse's Notes [facility] Name: Julieta Gauthier Age: 44 yrs Sex: Female : 1975 Arrival Date: 03/28/2019 Time: 19:36 Bed 19 Private MD: Diagnosis: Rash and other nonspecific skin eruption;Cutaneous abscess of left axilla Presentation: 03/28 20:01 Presenting complaint: Patient states: Eyes itching, swollen and painful for about a ca1 month now. I was here before and the doctor told me I have eczema. They prescribed me Gentamicin Opthalmic ointment but I was not able to get it because they told me it wasn't available. Transition of care: patient was not received from another setting of care. Onset of symptoms was March 28, 2019. Risk Assessment: Do you want to hurt yourself or someone else? Patient reports no desire to harm self or others. Initial Sepsis Screen: Does the patient meet any 2 criteria? No. Patient's initial sepsis screen is negative. Does the patient have a suspected source of infection? No. Patient's initial sepsis screen is negative. Care prior to arrival: None. 20:01 Method Of Arrival: Ambulatory ca1 20:01 Acuity: GIANNA 4 ca1 Triage Assessment: 21:00 General: Appears in no apparent distress. uncomfortable, Behavior is calm, cooperative, rr5 appropriate for age. 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 - Social history:: Smoking status: Patient uses tobacco products, smokes one-half pack cigarettes per day. - Ebola Screening: : Patient negative for fever greater than or equal to 101.5 degrees Fahrenheit, and additional compatible Ebola Virus Disease symptoms Patient denies exposure to infectious person Patient denies travel to an Ebola-affected area in the 21 days before illness onset No symptoms or risks identified at this time. Screenin:00 Abuse screen: Denies threats or abuse. Denies injuries from another. Nutritional rr5 screening: No deficits noted. Tuberculosis screening: No symptoms or risk factors identified. Fall Risk None identified. Total Lanier Fall Scale indicates No Risk (0-24 pts). Assessment: 21:00 General: Appears in no apparent distress. uncomfortable, Behavior is calm, cooperative, rr5 appropriate for age. 21:00 Pain: Complains of pain in left axilla Pain does not radiate. Pain currently is 4 out rr5 of 10 on a pain scale. Quality of pain is described as aching, Pain began gradually, Is intermittent. Neuro: Level of Consciousness is awake, alert, obeys commands, Oriented to person, place, time, situation, Appropriate for age. Cardiovascular: Capillary refill < 3 seconds Patient's skin is warm and dry. Respiratory: Airway is patent Respiratory effort is even, unlabored, Respiratory pattern is regular, symmetrical. GI: No signs and/or symptoms were reported involving the gastrointestinal system. : No signs and/or symptoms were reported regarding the genitourinary system. EENT: Eyes redness. Derm: Abscess located on left axilla. Musculoskeletal: Capillary refill < 3 seconds. 21:40 Reassessment: Patient appears in no apparent distress at this time. Patient is alert, rr5 oriented x 3, equal unlabored respirations, skin warm/dry/pink. discharge instruction given and explained without complaints made. Vital Signs: 20:06 BP 146 / 75; Pulse 98; Resp 17 S; Temp 98.0(O); Pulse Ox 98% on R/A; Weight 92.08 kg ca1 (R); Height 5 ft. 3 in. (160.02 cm) (R); Pain 4/10; 21:30 BP 131 / 70; Pulse 95; Resp 16; Temp 97.5; Pulse Ox 99% ; rr5 20:06 Body Mass Index 35.96 (92.08 kg, 160.02 cm) ca1 ED Course: 19:36 Patient arrived in ED. ag3 20:05 Triage completed. ca1 20:06 Arm band placed on right wrist. ca1 20:52 Lan Chambers FNP-C is [facility] la1 20:52 Blake Ribeiro MD is Attending Physician. la1 21:00 Patient has correct armband on for positive identification. Bed in low position. rr5 21:00 No provider procedures requiring assistance completed. Patient did not have IV access rr5 during this emergency room visit. 21:40 Gurpreet Arriaga, RN is Primary Nurse. rr5 Administered Medications: No medications were administered Outcome: 21:25 Discharge ordered by . la1 21:40 Discharged to home ambulatory. rr5 21:40 Condition: stable 21:40 Discharge instructions given to patient, Instructed on discharge instructions, follow up and referral plans. medication usage, Demonstrated understanding of instructions, follow-up care, medications, Prescriptions given X 1. 21:41 Patient left the ED. rr5 Signatures: Lan Chambers, MEDICAL RECORDS SUPERVISOR-C MEDICAL RECORDS SUPERVISOR-Cla1 Katie Yeung ag3 Gurpreet Arriaga, RN RN rr5 Marilyn Moore RN RN ca1
--- NOTE | 2019-03-28 21:26 | EDPHYS ---
Physician Documentation [facility] Name: Julieta Gauthier Age: 44 yrs Sex: Female : 1975 Arrival Date: 03/28/2019 Time: 19:36 Bed 19 Private MD: ED Physician Blake Ribeiro HPI: 03/28 21:19 This 44 yrs old Female presents to ER via Ambulatory with complaints of Eye la1 Problem. 21:19 The patient is experiencing itching, rash. Duration: the symptoms are continuous. la1 Aggravated by nothing. Alleviated by nothing. Associated signs and symptoms: Pertinent negatives: fever. Severity of symptoms: At their worst the symptoms were moderate in the emergency department the symptoms are unchanged. pt reports dry, itchy rash around NARCISO eyes for the last month or two, also having skin abscesses under the left axilla, has not tried anything over the counter for the rash. 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 - Social history:: Smoking status: Patient uses tobacco products, smokes one-half pack cigarettes per day. - Ebola Screening: : Patient negative for fever greater than or equal to 101.5 degrees Fahrenheit, and additional compatible Ebola Virus Disease symptoms Patient denies exposure to infectious person Patient denies travel to an Ebola-affected area in the 21 days before illness onset No symptoms or risks identified at this time. ROS: 21:21 Constitutional: Negative for fever, chills, and weight loss, Eyes: + for rash around la1 eyes ENT: Negative for injury, pain, and discharge, Neck: Negative for injury, pain, and swelling, Cardiovascular: Negative for chest pain, palpitations, and edema, Respiratory: Negative for shortness of breath, cough, wheezing, and pleuritic chest pain, Abdomen/GI: Negative for abdominal pain, nausea, vomiting, diarrhea, and constipation, Back: Negative for injury and pain, : Negative for injury, bleeding, discharge, and swelling, MS/Extremity: Negative for injury and deformity. 21:21 Skin: Positive for abscess, of the left axilla. Exam: 21:22 Constitutional: This is a well developed, well nourished patient who is awake, alert, la1 and in no acute distress. Head/Face: Normocephalic, atraumatic. Eyes: Pupils equal round and reactive to light, extra-ocular motions intact. Periorbital areas with no swelling or edema, itchy, dry, rash around NARCISO eyes that pt reports has been present for over a month. ENT: Mucous membranes moist. Neck: Trachea midline, no thyromegaly or masses palpated, and no cervical lymphadenopathy. Supple, full range of motion without nuchal rigidity, or vertebral point tenderness. No Meningismus. Chest/axilla: Normal chest wall appearance and motion. Nontender with no deformity. No lesions are appreciated. Cardiovascular: Regular rate and rhythm with a normal S1 and S2. No gallops, murmurs, or rubs. Normal PMI, no JVD. No pulse deficits. Skin: Warm, dry with normal turgor, no evidence of cellulitis. 1 small absscsess that is indurated to the left axillary area Vital Signs: 20:06 BP 146 / 75; Pulse 98; Resp 17 S; Temp 98.0(O); Pulse Ox 98% on R/A; Weight 92.08 kg ca1 (R); Height 5 ft. 3 in. (160.02 cm) (R); Pain 4/10; 21:30 BP 131 / 70; Pulse 95; Resp 16; Temp 97.5; Pulse Ox 99% ; rr5 20:06 Body Mass Index 35.96 (92.08 kg, 160.02 cm) ca1 MDM: 20:52 Patient medically screened. la1 21:24 Data reviewed: vital signs, nurses notes, and as a result, I will discharge patient. la1 Data interpreted: Pulse oximetry: on room air is 100 %. Interpretation: normal. 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 ED course: Discussed application of barrier ointment to periorbital areas, use of daily allergy control medication and rx for abd for abscess to left axillary region as well as return precautions . Administered Medications: No medications were administered Disposition: 03/29 06:22 Co-signature as Attending Physician, Blake Ribeiro MD I agree with the assessment and tw4 plan of care. Chart complete. Chart complete. Disposition: 03/28/19 21:25 Discharged to Home. Impression: Rash and other nonspecific skin eruption, Cutaneous abscess of left axilla. - Condition is Stable. - Discharge Instructions: Skin Abscess, Eczema, Rash, [id number]. - Prescriptions for Bactrim DS 800- 160 mg Oral Tablet - take 1 tablet by ORAL route every 12 hours for 7 days; 14 tablet. - Medication Reconciliation Form, Thank You Letter, Antibiotic Education form. - Follow up: Private Physician; When: 2 - 3 days; Reason: Recheck today's complaints, Re-evaluation by your physician. - Problem is new. - Symptoms are unchanged. Signatures: Lan Chambers, FORM SETTER/DRIVER-C FORM SETTER/DRIVER-Cla1 Blake Ribeiro MD MD tw4 Gurpreet Arriaga, RN RN rr5 Marilyn Moore RN RN ca1 Corrections: (The following items were deleted from the chart) 03/28 21:25 21:25 03/28/2019 21:25 Discharged to Home. Impression: Rash and other nonspecific skin la1 eruption; Cutaneous abscess of left axilla. Condition is Stable. Forms are Medication Reconciliation Form, Thank You Letter, Antibiotic Education, Prescription Opioid Use. Follow up: Private Physician; When: 2 - 3 days; Reason: Recheck today's complaints, Re-evaluation by your physician. la1 21:41 21:25 03/28/2019 21:25 Discharged to Home. Impression: Rash and other nonspecific skin rr5 eruption; Cutaneous abscess of left axilla. Condition is Stable. Forms are Medication Reconciliation Form, Thank You Letter, Antibiotic Education, Prescription Opioid Use. Follow up: Private Physician; When: 2 - 3 days; Reason: Recheck today's complaints, Re-evaluation by your physician. Problem is new. Symptoms are unchanged. la1
[2019-03-29 14:45] VITALS: BP 146/75; TEMP 98; O2SAT 98
== END 2019-03-28 21:41 | disposition home or self-care (01) ==
LOC: ER 19:33
DX: R21 Rash and other nonspecific skin eruption (principal); L02.412 Cutaneous abscess of left axilla; F17.210 Nicotine dependence, cigarettes, uncomplicated
CPT/HCPCS: 99282

== ENCOUNTER 2019-05-01 10:00 | Emergency (ER) | payer SELFPAY ==
--- NOTE | 2019-05-01 11:19 | EDPHYS ---
Physician Documentation [facility] Name: Julieta Gauthier Age: 44 yrs Sex: Female : 1975 Arrival Date: 05/01/2019 Time: 10:01 Bed 24 Private MD: ED Physician Eduardo Devi HPI: 05/01 11:09 This 44 yrs old Female presents to ER via Ambulatory with complaints of Eye rn Problem. 11:09 The patient is experiencing redness, The patient sustained None. to both eyes. rn 11:09 Onset: The symptoms/episode began/occurred 1 month(s) ago. Duration: the symptoms are rn continuous. Aggravated by rubbing, Alleviated by nothing. Severity of symptoms: At their worst the symptoms were mild in the emergency department the symptoms are unchanged. The patient has experienced similar episodes in the past. Reports has chronic eye problems, has been seen here multiple times but yet to f/u with eye doctor, no fever, no trauma or injury. + swelling/styes to both eyes, left work today but couldn't get in with eye doctor, so came here for note. No blurred vision. No drainage. . Historical: - Allergies: 10:26 No Known Drug Allergies; sv - PMHx: 10:26 Migraines; sv - PSHx: 10:26 Tonsillectomy; Tubal ligation; Cholecystectomy; sv - Immunization history:: Adult Immunizations up to date. - Social history:: Smoking status: Patient denies any tobacco usage or history of. - Family history:: not pertinent. - Ebola Screening: : Patient negative for fever greater than or equal to 101.5 degrees Fahrenheit, and additional compatible Ebola Virus Disease symptoms Patient denies exposure to infectious person Patient denies travel to an Ebola-affected area in the 21 days before illness onset No symptoms or risks identified at this time. - Hospitalizations: : No recent hospitalization is reported. ROS: 11:09 Constitutional: Negative for fever, chills, and weight loss, Eyes: + swelling and pain rn to lower eyelids Exam: 11:09 Constitutional: This is a well developed, well nourished patient who is awake, alert, rn and in no acute distress. Head/Face: Normocephalic, atraumatic. Eyes: Pupils equal round and reactive to light, extra-ocular motions intact. + inferior eyelids with stye/hordeolum, no conjunctival erythema or drainage. Vital Signs: 10:26 BP 129 / 87; Pulse 108; Resp 17; Temp 98.2; Pulse Ox 100% ; Weight 94.35 kg; Height 5 sv ft. 3 in. (160.02 cm); Pain 6/10; 10:26 Body Mass Index 36.85 (94.35 kg, 160.02 cm) sv MDM: 11:00 Patient medically screened. rn 11:17 Differential diagnosis: stye/hordeolum. Data reviewed: vital signs, nurses notes, and rn as a result, I will discharge patient. Counseling: I had a detailed discussion with the patient and/or guardian regarding: the historical points, exam findings, and any diagnostic results supporting the discharge/admit diagnosis, the need for outpatient follow up, to return to the emergency department if symptoms worsen or persist or if there are any questions or concerns that arise at home. Special discussion: I discussed with the patient/guardian in detail that at this point there is no indication for admission to the hospital. It is understood, however, that if the symptoms persist or worsen the patient needs to return immediately for re-evaluation. Based on the history and exam findings, there is no indication for further emergent testing or inpatient evaluation. I discussed with the patient/guardian the need to see the opthamologist for further evaluation of the symptoms. Administered Medications: No medications were administered Disposition: 05/01/19 11:18 Discharged to Home. Impression: Hordeolum (externum) (internum) of eyelid. - Condition is Stable. - Discharge Instructions: Stye. - Prescriptions for Erythromycin 5 mg/gram (0.5 %) Ophthalmic Ointment - apply 1 centimeter by OPHTHALMIC route 2-3 times daily for 7 days; 1 tube. - Medication Reconciliation Form, Thank You Letter, Antibiotic Education, Prescription Opioid Use form. - Follow up: Ana Wilkinson MD; When: As needed; Reason: Recheck today's complaints, Re-evaluation by your physician. - Problem is an ongoing problem. - Symptoms are unchanged. Signatures: Fiorella Williamson RN RN Henrique Vidal RN RN em Nieto, Roman, MD MD clipper and turner: (The following items were deleted from the chart) 11:26 11:18 05/01/2019 11:18 Discharged to Home. Impression: Hordeolum (externum) (internum) em of eyelid. Condition is Stable. Forms are Medication Reconciliation Form, Thank You Letter, Antibiotic Education, Prescription Opioid Use. Follow up: Ana Wilkinson; When: As needed; Reason: Recheck today's complaints, Re-evaluation by your physician. Problem is an ongoing problem. Symptoms are unchanged. rn
--- NOTE | 2019-05-01 11:19 | ER ---
Nurse's Notes [facility] Name: Julieta Gauthier Age: 44 yrs Sex: Female : 1975 Arrival Date: 05/01/2019 Time: 10: Bed 24 Private MD: Diagnosis: Hordeolum (externum) (internum) of eyelid Presentation: 05/01 10:25 Presenting complaint: Patient states: bilateral eye itching/soreness/swelling x 1 sv month. Transition of care: patient was not received from another setting of care. Onset of symptoms was March 2019. Care prior to arrival: None. 10:25 Method Of Arrival: Ambulatory sv 10:25 Acuity: GIANNA 4 sv 11:15 Risk Assessment: Do you want to hurt yourself or someone else? Patient reports no em desire to harm self or others. Initial Sepsis Screen: Does the patient meet any 2 criteria? HR > 90 bpm. Yes Does the patient have a suspected source of infection? No. Patient's initial sepsis screen is negative. Historical: - Allergies: 10:26 No Known Drug Allergies; sv - PMHx: 10:26 Migraines; sv - PSHx: 10:26 Tonsillectomy; Tubal ligation; Cholecystectomy; sv - Immunization history:: Adult Immunizations up to date. - Social history:: Smoking status: Patient denies any tobacco usage or history of. - Family history:: not pertinent. - Ebola Screening: : Patient negative for fever greater than or equal to 101.5 degrees Fahrenheit, and additional compatible Ebola Virus Disease symptoms Patient denies exposure to infectious person Patient denies travel to an Ebola-affected area in the 21 days before illness onset No symptoms or risks identified at this time. - Hospitalizations: : No recent hospitalization is reported. Screenin:14 Abuse screen: Denies threats or abuse. Nutritional screening: No deficits noted. em Tuberculosis screening: No symptoms or risk factors identified. Fall Risk None identified. Assessment: 11:18 General: Appears in no apparent distress. uncomfortable, Behavior is calm, cooperative, em Denies fever. Pain: Complains of pain in right eye and left eye Pain currently is 6 out of 10 on a pain scale. Neuro: Level of Consciousness is awake, alert, obeys commands, Oriented to person, place, time, situation, Appropriate for age. Cardiovascular: Capillary refill < 3 seconds Patient's skin is warm and dry. Respiratory: Airway is patent Respiratory effort is even, unlabored, Respiratory pattern is regular, symmetrical. GI: Abdomen is flat. EENT: Eyes are tearing on right eye and left eye Sclera/Cornea are reddened in right eye and left eye. Derm: Skin is intact, is healthy with good turgor, Skin is pink, warm \T\ dry. Musculoskeletal: Capillary refill < 3 seconds, Range of motion: intact in all extremities. Vital Signs: 10:26 BP 129 / 87; Pulse 108; Resp 17; Temp 98.2; Pulse Ox 100% ; Weight 94.35 kg; Height 5 sv ft. 3 in. (160.02 cm); Pain 6/10; 10: Body Mass Index 36.85 (94.35 kg, 160.02 cm) sv ED Course: 10:01 Patient arrived in ED. as 10:25 Triage completed. sv 10:26 Arm band placed on. sv 10:57 Henrique Vidal RN is Primary Nurse. em 11:00 Eduardo Devi MD is Attending Physician. rn 11:14 Patient has correct armband on for positive identification. Bed in low position. Call em light in reach. Adult w/ patient. 11:17 Ana Wilkinson MD is Referral Physician. rn 11:25 No provider procedures requiring assistance completed. Patient did not have IV access em during this emergency room visit. Administered Medications: No medications were administered Outcome: 11:18 Discharge ordered by MD. rn 11:25 Discharged to home ambulatory. em 11:25 Condition: good 11:25 Discharge instructions given to patient, Instructed on discharge instructions, follow up and referral plans. medication usage, Demonstrated understanding of instructions, follow-up care, medications, Prescriptions given X 1. 11:26 Patient left the ED. em Signatures: Fiorella Williamson RN RN Henrique Vidal RN RN em Lili Upton Roman, MD MD rn
[2019-05-01 13:51] VITALS: BP 129/87; TEMP 98.2; O2SAT 100
== END 2019-05-01 11:26 | disposition home or self-care (01) ==
LOC: ER 10:00
DX: H00.025 Hordeolum internum left lower eyelid (principal); H00.022 Hordeolum internum right lower eyelid; H00.015 Hordeolum externum left lower eyelid; H00.012 Hordeolum externum right lower eyelid
CPT/HCPCS: 99282

== ENCOUNTER 2019-05-20 14:41 | Emergency (ER) | payer SELFPAY ==
[2019-05-20] MEDS ORDERED: NA CHLORIDE 0.9% 1,000 ML ONE (15:47)
[2019-05-20] MEDS ORDERED: LIDOCAINE 1% W/EPI 1:100,000 MDV 20 ML VIAL ONE (15:47)
[2019-05-20 15:56] LABS: Absolute Lymphocytes (CBC) 1.8 K/uL (0.7-4.9); Hematocrit 39.5 % (36.0-45.0); Lymphocytes % 18.9 % (15.3-44.8); MPV 10.2 fL (7.6-11.3); RBC Red Blood Cell Count 4.37 M/uL (3.86-4.86)
[2019-05-20 16:07] LABS: Urine Blood 2+ (NEG); Urine Glucose NEGATIVE (NEG); Urine Protein NEGATIVE (NEG); Urine Specific Gravity 1.025 (1.005-1.030); Urine pH 5.5 (5.0-7.0)
[2019-05-20 16:11] LABS: Potassium 3.4 mmol/L (3.5-5.1)
--- NOTE | 2019-05-20 16:29 | EDPHYS ---
Physician Documentation [facility] Name: Julieta Gauthier Age: 44 yrs Sex: Female : 1975 Arrival Date: 05/20/2019 Time: 14:44 Bed 17 Private MD: ED Physician Eduardo Devi HPI: 05/20 15:30 This 44 yrs old Female presents to ER via Ambulatory with complaints of cp Abscess. 15:30 the patient presents with a swollen area of the right facial cheek. cp 15:30 Description: swollen, tense. Onset: The symptoms/episode began/occurred this morning. cp Possible cause(s): unknown. Associated signs and symptoms: Pertinent negatives: discharge, drainage, fever. Historical: - Allergies: 15:05 No Known Allergies; rb1 - PMHx: 15:05 Migraines; rb1 - PSHx: 15:05 Tonsillectomy; Tubal ligation; Cholecystectomy; rb1 - Immunization history:: Adult Immunizations up to date. - Coronavirus screen:: The patient has NOT traveled to [place], [place], or [place] in the past 14 days. The patient has NOT had contact with known/suspected case of Coronavirus?. - Social history:: Smoking status: Patient reports the use of cigarette tobacco products, smokes one-half pack cigarettes per day. - Ebola Screening: : Patient negative for fever greater than or equal to 101.5 degrees Fahrenheit, and additional compatible Ebola Virus Disease symptoms. ROS: 15:35 Constitutional: Negative for body aches, chills, fever, poor PO intake. cp 15:35 Eyes: Negative for injury, pain, redness, and discharge. cp 15:35 ENT: Negative for drainage from ear(s), ear pain, sore throat, difficulty swallowing, difficulty handling secretions. 15:35 Cardiovascular: Negative for chest pain. 15:35 Respiratory: Negative for cough. 15:35 Abdomen/GI: Negative for abdominal pain, vomiting, diarrhea, constipation. 15:35 Skin: Positive for swelling, of the right facial cheek. 15:35 Neuro: Negative for altered mental status, headache, weakness. 15:35 All other systems are negative. Exam: 15:40 Constitutional: The patient appears in no acute distress, alert, awake, non-toxic, well cp developed, well nourished. 15:40 Head/face: Noted is swelling, that is mild, of the right cheek, tenderness, that is cp moderate, of the right cheek. 15:40 Eyes: Periorbital structures: appear normal, Conjunctiva: normal, no exudate, no injection, Sclera: no appreciated abnormality, Lids and lashes: appear normal, bilaterally. 15:40 ENT: External ear(s): are unremarkable, Nose: is normal, Mouth: Lips: moist, Oral mucosa: pink and intact, moist, Posterior pharynx: is normal, airway is patent. 15:40 Chest/axilla: Inspection: normal. 15:40 Cardiovascular: Rate: tachycardic, Rhythm: regular. 15:40 Respiratory: the patient does not display signs of respiratory distress, Respirations: normal, no use of accessory muscles, labored breathing, is not present, Breath sounds: are clear throughout, no decreased breath sounds. 15:40 Abdomen/GI: Inspection: abdomen appears normal. 15:40 Skin: abscess, that is small, of the right facial cheek, cellulitis, that is mild, on the right facial cheek. Vital Signs: 15:05 BP 118 / 73; Pulse 105; Resp 17; Temp 97.5(TE); Pulse Ox 100% on R/A; Weight 94.35 kg rb1 (R); Height 5 ft. 2 in. (157.48 cm) (R); Pain 8/10; 16:00 BP 134 / 78; Pulse 107; Resp 17; Pulse Ox 100% ; bp 17:37 BP 121 / 69; Pulse 87; Resp 16; Temp 97.5; Pulse Ox 100% ; bp 15:05 Body Mass Index 38.04 (94.35 kg, 157.48 cm) rb1 Procedures: 16:18 I \T\ D: Incision and drainage was performed for an abscess of the right facial cheek cp Prepped with Betadine, Anesthetized with 2 ml's 1% Lidocaine w/ Epi. Area aspirated with 18 gauge needle, scant amount of purulent drainage. Area cleaned and dressed. MDM: 15:21 Patient medically screened. cp 16:00 Differential diagnosis: abscess, cellulitis, dental abscess. cp 16:28 Data reviewed: vital signs, nurses notes, lab test result(s), I have discussed the patient's presentation/case with the attending Emergency Department Physician; and as a result, I will discharge patient. 05/20 15:26 Order name: CBC with Diff; Complete Time: 16:20 cp 05/20 15:26 Order name: BMP; Complete Time: 16:20 cp 05/20 16:20 Interpretation: Normal except: K 3.4; CL 108; GFR 53. cp 05/20 15:26 Order name: Wound Culture cp 05/20 16:04 Order name: Urine Dipstick--Ancillary (enter results); Complete Time: 16:20 ms 05/20 16:04 Order name: Urine --Ancillary (enter results); Complete Time: 16:20 ms 05/20 15:26 Order name: I\T\D Setup; Complete Time: 15:48 cp 05/20 15:26 Order name: IV; Complete Time: 15:48 cp 05/20 15:26 Order name: Urine Test (obtain specimen); Complete Time: 15:48 cp 05/20 15:26 Order name: Urine Dipstick-Ancillary (obtain specimen); Complete Time: 15:48 cp Administered Medications: 15:45 Drug: NS 0.9% 1000 ml Route: IV; Rate: 1 bolus; Site: left antecubital; bp 17:40 Follow up: IV Status: Completed infusion; IV Intake: 1000ml bp 15:45 Drug: Lidocaine-Epinephrine -1%: (1:100,000) 10 ml Volume: 20 ml; Route: Infiltration; bp 16:30 Drug: Clindamycin 900 mg Route: IVPB; Infused Over: 30 mins; Site: left antecubital; bp 17:40 Follow up: IV Status: Completed infusion; IV Intake: 50ml bp 16:30 Drug: Bactrim (160 mg-800 mg (DS) 1 tablet Route: PO; bp 17:40 Follow up: Response: No adverse reaction bp 16:30 Drug: Hydrocodone-Acetaminophen (7.5 mg-325 mg) 1 tabs Route: PO; bp 17:40 Follow up: Response: Pain is decreased bp 16:30 Drug: Potassium Effervescent Tablet 25 mEq Route: PO; bp 17:41 Follow up: Response: No adverse reaction bp Disposition: 16:35 Chart complete. cp 17:41 Co-signature as Attending Physician, Eduardo Devi MD. rn Disposition: 05/20/19 16:29 Discharged to Home. Impression: Cutaneous abscess of face - right cheek, Cellulitis of face. - Condition is Stable. - Discharge Instructions: Skin Abscess, Cellulitis, Adult. - Prescriptions for Clindamycin HCl 300 mg Oral Capsule - take 1 capsule by ORAL route every 6 hours for 10 days; 40 capsule. Bactrim DS 800- 160 mg Oral Tablet - take 1 tablet by ORAL route every 12 hours for 10 days; 20 tablet. Tramadol 50 mg Oral Tablet - take 1 tablet by ORAL route every 8 hours as needed; 12 tablet. - Medication Reconciliation Form, Thank You Letter, Antibiotic Education, Prescription Opioid Use, Work release form form. - Follow up: Private Physician; When: 1 - 2 days; Reason: Recheck today's complaints. - Problem is new. - Symptoms have improved. Signatures: Dispatcher [employer] EDMS Eduardo Devi MD MD rn Latrell Hernandez PA PA cp Barber, Rebecca, BRIELLE RN Niels Schilling RN RN bp Corrections: (The following items were deleted from the chart) 17:41 16:29 05/20/2019 16:29 Discharged to Home. Impression: Cutaneous abscess of face - bp right cheek; Cellulitis of face. Condition is Stable. Forms are Medication Reconciliation Form, Thank You Letter, Antibiotic Education, Prescription Opioid Use. Follow up: Private Physician; When: 1 - 2 days; Reason: Recheck today's complaints. Problem is new. Symptoms have improved. cp
--- NOTE | 2019-05-20 16:29 | ER ---
Nurse's Notes [facility] Name: Julieta Gauthier Age: 44 yrs Sex: Female : 1975 Arrival Date: 05/20/2019 Time: 14:44 Bed 17 Private MD: Diagnosis: Cutaneous abscess of face-right cheek;Cellulitis of face Presentation: 05/20 15:01 Presenting complaint: Patient states: woke up this morning with redness to the right rb1 cheek and left lower jaw. Denies fever, NVD. Report fatigue. Transition of care: patient was not received from another setting of care. Onset of symptoms was May 20, 2019. Risk Assessment: Do you want to hurt yourself or someone else? Patient reports no desire to harm self or others. 15:01 Method Of Arrival: Ambulatory rb1 15:01 Acuity: GIANNA 3 rb1 15:05 Initial Sepsis Screen: Does the patient meet any 2 criteria? HR > 90 bpm. No. Patient's bp initial sepsis screen is negative. Does the patient have a suspected source of infection? Yes: Skin breakdown/wound. Care prior to arrival: None. Triage Assessment: 15:05 General: Appears in no apparent distress. comfortable, Behavior is calm, cooperative. rb1 General: Reports fatigue for Denies fever. Neuro: Level of Consciousness is awake, alert, obeys commands, Oriented to person, place, time, situation. Respiratory: Airway is patent Respiratory effort is even, unlabored, Respiratory pattern is regular, symmetrical. Derm:. Historical: - Allergies: 15:05 No Known Allergies; rb1 - PMHx: 15:05 Migraines; rb1 - PSHx: 15:05 Tonsillectomy; Tubal ligation; Cholecystectomy; rb1 - Immunization history:: Adult Immunizations up to date. - Coronavirus screen:: The patient has NOT traveled to [place], [place], or [place] in the past 14 days. The patient has NOT had contact with known/suspected case of Coronavirus?. - Social history:: Smoking status: Patient reports the use of cigarette tobacco products, smokes one-half pack cigarettes per day. - Ebola Screening: : Patient negative for fever greater than or equal to 101.5 degrees Fahrenheit, and additional compatible Ebola Virus Disease symptoms. Screenin:05 Abuse screen: Denies threats or abuse. Denies injuries from another. Nutritional bp screening: No deficits noted. Tuberculosis screening: No symptoms or risk factors identified. Fall Risk None identified. Assessment: 15:05 General: SEE TRIAGE NOTE. Pain: Complains of pain in right cheek. bp 16:00 Reassessment: PROVIDER AT B/S FOR I\T\D. bp 16:45 Reassessment: I\T\D COMPLETED. D/C ON HOLD FOR IV ABX. bp 17:36 Reassessment: IVF AND ABX COMPLETED. PT D/C HOME AMBULATORY WITH FAMILY, DX WITH bp CUTANEOUS ABSCESS. Vital Signs: 15:05 BP 118 / 73; Pulse 105; Resp 17; Temp 97.5(TE); Pulse Ox 100% on R/A; Weight 94.35 kg rb1 (R); Height 5 ft. 2 in. (157.48 cm) (R); Pain 8/10; 16:00 BP 134 / 78; Pulse 107; Resp 17; Pulse Ox 100% ; bp 17:37 BP 121 / 69; Pulse 87; Resp 16; Temp 97.5; Pulse Ox 100% ; bp 15:05 Body Mass Index 38.04 (94.35 kg, 157.48 cm) rb1 ED Course: 14:44 Patient arrived in ED. as 15:04 Triage completed. rb1 15:05 Arm band placed on right wrist. rb1 15:16 Niels Maddox, BRIELLE is Primary Nurse. bp 15:17 Latrell Hernandez PA is PHCP. cp 15:17 Eduardo Devi MD is Attending Physician. cp 15:45 Inserted saline lock: 22 gauge in left antecubital area, using aseptic technique. Blood bp collected. 15:58 Initial lab(s) drawn, by la, sent to lab. Inserted saline lock: 22 gauge in left mh5 antecubital area, using aseptic technique. Blood collected. 15:59 Patient has correct armband on for positive identification. Placed in gown. Bed in low mh5 position. Call light in reach. Side rails up X 1. Warm blanket given. Pulse ox on. NIBP on. 16:00 Assist provider with I \T\ D: of an abscess on right CHEEK Set up I\T\D tray. Performed by bp Latrell WEAVER Culture sent to lab. Dressing with tape Patient tolerated well. 17:38 IV discontinued, intact, bleeding controlled, No redness/swelling at site. Pressure bp dressing applied. Administered Medications: 15:45 Drug: NS 0.9% 1000 ml Route: IV; Rate: 1 bolus; Site: left antecubital; bp 17:40 Follow up: IV Status: Completed infusion; IV Intake: 1000ml bp 15:45 Drug: Lidocaine-Epinephrine -1%: (1:100,000) 10 ml Volume: 20 ml; Route: Infiltration; bp 16:30 Drug: Clindamycin 900 mg Route: IVPB; Infused Over: 30 mins; Site: left antecubital; bp 17:40 Follow up: IV Status: Completed infusion; IV Intake: 50ml bp 16:30 Drug: Bactrim (160 mg-800 mg (DS) 1 tablet Route: PO; bp 17:40 Follow up: Response: No adverse reaction bp 16:30 Drug: Hydrocodone-Acetaminophen (7.5 mg-325 mg) 1 tabs Route: PO; bp 17:40 Follow up: Response: Pain is decreased bp 16:30 Drug: Potassium Effervescent Tablet 25 mEq Route: PO; bp 17:41 Follow up: Response: No adverse reaction bp Intake: 17:40 IV: 1000ml; Total: 1000ml. bp 17:40 IV: 50ml; Total: 1050ml. bp Outcome: 16:29 Discharge ordered by MD. cp 17:38 Discharged to home ambulatory, with family. bp 17:38 Condition: stable 17:38 Discharge instructions given to patient, Instructed on discharge instructions, follow up and referral plans. medication usage, wound care, Demonstrated understanding of instructions, follow-up care, medications, wound care, Prescriptions given X 3. 17:41 Patient left the ED. bp Addendum: 05/23/2019 12:30 Addendum: Culture Results: Positive wound culture. No further action required. Bacteria i w sensitive to prescribed antibiotic. Signatures: Lili Upton Irene, RN RN iw Latrell Hernandez PA PA cp Barber, Rebecca, RN RN rb1 Judith Upton [facility] Niels Maddox RN RN bp
[2019-05-20] MEDS ORDERED: SMZ./TMP. 800/160 MG TABLET ONE (16:41)
[2019-05-20] MEDS ORDERED: HYDROCODONE/APAP 7.5/325 MG TAB ONE (16:42)
[2019-05-20] MEDS ORDERED: POTASSIUM 25 MEQ EFFERV TAB ONE (16:42)
[2019-05-20] MEDS ORDERED: CLINDAMYCIN 900MG/D5W 900 MG/50 ML IVPB IV ONE (16:42)
[2019-05-20 17:47] VITALS: TEMP 97.5; O2SAT 100
[2019-05-20 17:49] VITALS: BP 121/69
== END 2019-05-20 17:41 | disposition home or self-care (01) ==
LOC: ER 14:41
PROC: 0J910ZZ Drainage of Face Subcutaneous Tissue and Fascia, Open Approach (ICD-10-PCS; principal; 2019-05-20)
DX: L02.01 Cutaneous abscess of face (principal); L03.211 Cellulitis of face; F17.210 Nicotine dependence, cigarettes, uncomplicated
CPT/HCPCS: 36415; 80048; 81003; 81025; 85025; 87070; 87077; 87186; 87205; 96361; 96365; 99284; J7030

== ENCOUNTER 2019-07-14 13:27 | Emergency (ER) | payer SELFPAY ==
--- NOTE | 2019-07-14 13:48 | EDPHYS ---
Physician Documentation [facility] Name: Julieta Gauthier Age: 44 yrs Sex: Female : 1975 Arrival Date: 07/14/2019 Time: 13:30 Bed 13 Private MD: ED Physician Eduardo Devi HPI: 07/13 13:43 This 44 yrs old Female presents to ER via Ambulatory with complaints of Foot rn Pain, Rash. 13:43 The patient presents with pain. The complaints affect the right foot. Onset: The rn symptoms/episode began/occurred yesterday. Severity of symptoms: At their worst the symptoms were mild, in the emergency department the symptoms are unchanged. The patient has not experienced similar symptoms in the past. Reports on and off issues with right small 2 about 2-3 weeks, got better, now worse since yesterday, noticed some pain and streaking up foot with redness. No fever. No trauma. Not sure if something bit her. . 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 - Family history:: not pertinent. - Social history:: Smoking status: Patient denies any tobacco usage or history of. - Hospitalizations: : No recent hospitalization is reported. ROS: 13:43 Constitutional: Negative for fever, chills, and weight loss, MS/Extremity: Negative for rn injury and deformity, + redness and pain to right foot Skin: + redness of toe and foot Exam: 13:43 Constitutional: This is a well developed, well nourished patient who is awake, alert, rn and in no acute distress. MS/ Extremity: Pulses equal, no cyanosis. Neurovascular intact. Full, normal range of motion. Equal circumference. + right 4th and 5th toes with mild erythema, no fluctuance, + warm, no cyanosis or gangrene. + faint red streaking on dorsum of foot, does not cross ankle joint. No open wounds or drainage. No fluctuance. Vital Signs: 13:37 BP 121 / 76; Pulse 109; Resp 16; Temp 98.2(O); Pulse Ox 99% ; lt1 13:44 Temp 98.8(O); jl7 MDM: 13:32 Patient medically screened. rn 13:43 Differential diagnosis: cellulitis. Differential diagnosis: lymphangitis. Data rn reviewed: vital signs, nurses notes. Counseling: I had a detailed discussion with the patient and/or guardian regarding: the historical points, exam findings, and any diagnostic results supporting the discharge/admit diagnosis, the need for outpatient follow up, to return to the emergency department if symptoms worsen or persist or if there are any questions or concerns that arise at home. Administered Medications: No medications were administered Disposition: 07/14/19 13:47 Discharged to Home. Impression: Cellulitis right foot, Lymphangitis. - Condition is Stable. - Discharge Instructions: Cellulitis, Adult, Lymphangitis, Adult. - Prescriptions for Clindamycin HCl 300 mg Oral Capsule - take 1 capsule by ORAL route every 6 hours for 10 days; 40 capsule. Bactrim DS 800- 160 mg Oral Tablet - take 1 tablet by ORAL route every 12 hours for 10 days; 20 tablet. - Medication Reconciliation Form, Thank You Letter, Antibiotic Education, Prescription Opioid Use form. - Follow up: Private Physician; When: As needed; Reason: Recheck today's complaints, Re-evaluation by your physician. - Problem is new. - Symptoms are unchanged. Signatures: Leticia Burgess RN RN iw Nieto, Roman, MD MD rn Leal, Jahala, RN RN jl7 Corrections: (The following items were deleted from the chart) 13:52 13:47 07/14/2019 13:47 Discharged to Home. Impression: Cellulitis right foot; jl7 Lymphangitis. Condition is Stable. Forms are Medication Reconciliation Form, Thank You Letter, Antibiotic Education, Prescription Opioid Use. Follow up: Private Physician; When: As needed; Reason: Recheck today's complaints, Re-evaluation by your physician. Problem is new. Symptoms are unchanged. rn
--- NOTE | 2019-07-14 13:48 | ER ---
Nurse's Notes [facility] Name: Julieta Gauthier Age: 44 yrs Sex: Female : 1975 Arrival Date: 07/14/2019 Time: 13:30 Bed 13 Private MD: Diagnosis: Cellulitis right foot;Lymphangitis Presentation: 07/13 13:40 Chief complaint: Patient states: had a spot in between her right 4th and 5th toe 3 iw weeks ago, was blistered and itchy and had pus, it healed up then came back 2-3 days ago, also has redness to top of foot and tenderness to bottom of foot. Coronavirus screen: Patient denies fever greater than 100.4F, cough, shortness of breath, or difficulty breathing. Proceed with normal triage process. Ebola Screen: Patient negative for fever greater than or equal to 101.5 degrees Fahrenheit, and additional compatible Ebola Virus Disease symptoms Patient denies exposure to infectious person. Patient denies travel to an Ebola-affected area in the 21 days before illness onset. No symptoms or risks identified at this time. Initial Sepsis Screen: Does the patient meet any 2 criteria? No. Patient's initial sepsis screen is negative. Does the patient have a suspected source of infection? No. Patient's initial sepsis screen is negative. Risk Assessment: Do you want to hurt yourself or someone else? Patient reports no desire to harm self or others. 13:40 Method Of Arrival: Ambulatory iw 13:40 Acuity: GIANNA 3 iw 13:46 Onset of symptoms was June 23, 2019. 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 - Family history:: not pertinent. - Social history:: Smoking status: Patient denies any tobacco usage or history of. - Hospitalizations: : No recent hospitalization is reported. Screenin:44 Abuse screen: Denies threats or abuse. Denies injuries from another. Nutritional jl7 screening: No deficits noted. Tuberculosis screening: No symptoms or risk factors identified. Fall Risk None identified. Assessment: 13:44 General: Appears in no apparent distress. uncomfortable, Behavior is calm, cooperative, jl7 appropriate for age. Pain: Complains of pain in right fifth toe. Neuro: Level of Consciousness is awake, alert, obeys commands, Oriented to person, place, time, situation. Cardiovascular: Patient's skin is warm and dry. Respiratory: Airway is patent Respiratory effort is even, unlabored, Respiratory pattern is regular, symmetrical. Derm: Skin is pink, warm \T\ dry. Vital Signs: 13:37 BP 121 / 76; Pulse 109; Resp 16; Temp 98.2(O); Pulse Ox 99% ; lt1 13:44 Temp 98.8(O); jl7 ED Course: 13:30 Patient arrived in ED. ag5 13:32 Eduardo Devi MD is Attending Physician. rn 13:42 Triage completed. iw 13:43 Toshia Hidalgo, RN is Primary Nurse. jl7 13:43 Arm band placed on right wrist. jl7 13:44 Patient has correct armband on for positive identification. Bed in low position. Call jl7 light in reach. Side rails up X 1. 13:44 No provider procedures requiring assistance completed. Patient did not have IV access jl7 during this emergency room visit. Administered Medications: No medications were administered Outcome: 13:47 Discharge ordered by . rn 13:52 Discharged to home ambulatory. jl7 13:52 Condition: stable 13:52 Discharge instructions given to patient, Instructed on discharge instructions, follow up and referral plans. medication usage, Demonstrated understanding of instructions, follow-up care, medications, Prescriptions given X 2. 13:52 Patient left the ED. jl7 Signatures: Leticia Burgess RN RN Eduardo Devi MD MD rn Leal, Jahala, RN RN jl7 Josemanuel Bishop ag5 Arellano, Claudia lt1
[2019-07-14 14:11] VITALS: BP 121/76; O2SAT 99
[2019-07-14 14:12] VITALS: TEMP 98.8
== END 2019-07-14 13:52 | disposition home or self-care (01) ==
LOC: ER 13:27
DX: L03.115 Cellulitis of right lower limb (principal); I89.1 Lymphangitis
CPT/HCPCS: 99282

== ENCOUNTER 2019-07-14 22:01 | Emergency (ER) | payer SELFPAY ==
--- NOTE | 2019-07-14 22:53 | ER ---
Nurse's Notes [facility] Name: Julieta Gauthier Age: 44 yrs Sex: Female : 1975 Arrival Date: 07/14/2019 Time: 22:04 Bed 7 Private MD: Diagnosis: Cellulitis of right lower limb Presentation: 07/13 22:24 Chief complaint: Patient states: she was seen here earlier today with an infection to bb her right foot started on antibiotics and told to come back if symptoms worsen and it seems to be getting worse and spreading and more painful. Coronavirus screen: Patient denies fever greater than 100.4F, cough, shortness of breath, or difficulty breathing. Proceed with normal triage process. Ebola Screen: No symptoms or risks identified at this time. Initial Sepsis Screen: Does the patient meet any 2 criteria? No. Patient's initial sepsis screen is negative. Does the patient have a suspected source of infection? No. Patient's initial sepsis screen is negative. Risk Assessment: Do you want to hurt yourself or someone else? Patient reports no desire to harm self or others. Onset of symptoms was July 2019. 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 - Social history:: Smoking status: Patient reports the use of cigarette tobacco products, smokes one-half pack cigarettes per day, Patient/guardian denies using alcohol. Assessment: 22:48 Reassessment: pt received MSE by Dr Ribeiro and decided to refuse treatment pt will bb follow-up in 2 to 3 days if symptoms worsen after taking antibiotics. Vital Signs: 22:24 BP 118 / 82; Pulse 111; Resp 16 S; Temp 98.5(O); Pulse Ox 100% on R/A; Weight 95.25 kg bb (R); Height 5 ft. 3 in. (160.02 cm) (R); Pain 9/10; 22:24 Body Mass Index 37.20 (95.25 kg, 160.02 cm) bb ED Course: 22:04 Patient arrived in ED. mr 22:14 Blake Ribeiro MD is Attending Physician. tw4 22:27 Triage completed. bb 22:31 Arm band placed on Patient placed in an exam room, on a stretcher, on pulse oximetry. bb 22:48 Mariajose Torres, RN is Primary Nurse. bb Administered Medications: No medications were administered Outcome: 22:39 Medical screen evaluation completed per provider. Patient declined treatment. 22:39 Condition: good 22:39 Discharge instructions given to patient. 22:52 Discharge ordered by . tw4 23:21 Patient left the ED. Signatures: Hui Jeter mr NassarRin, BRIELLE RN Mariajose Richards, BRIELLE RN Blake Figueroa MD MD tw4
--- NOTE | 2019-07-14 22:53 | EDPHYS ---
Physician Documentation [facility] Name: Julieta Gauthier Age: 44 yrs Sex: Female : 1975 Arrival Date: 07/14/2019 Time: 22:04 Bed 7 Private MD: ED Physician Blake Ribeiro HPI: 07/14 06:47 This 44 yrs old Female presents to ER via Ambulatory with complaints of Foot tw4 Infection. 06:47 The patient presents with cellulitis of the right fourth toe and right fifth toe. tw4 Description: The affected area is small. Onset: The symptoms/episode began/occurred today. Associated signs and symptoms: The patient has no apparent associated signs or symptoms. Modifying factors: the symptoms are alleviated by nothing, the symptoms are aggravated by nothing. The patient has not experienced similar symptoms in the past. 06:51 The patient has been recently seen at the [facility] Emergency tw4 Department, today. 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 - Social history:: Smoking status: Patient reports the use of cigarette tobacco products, smokes one-half pack cigarettes per day, Patient/guardian denies using alcohol. ROS: 07/14 06:47 Constitutional: Negative for fever, chills, and weight loss, Eyes: Negative for injury, tw4 pain, redness, and discharge, Cardiovascular: Negative for chest pain, palpitations, and edema, Respiratory: Negative for shortness of breath, cough, wheezing, and pleuritic chest pain, Abdomen/GI: Negative for abdominal pain, nausea, vomiting, diarrhea, and constipation, MS/Extremity: Negative for injury and deformity. Skin: Positive for cellulitis, Negative for abrasions, abscesses, avulsion, cellulitis, ecchymosis, erythema. Exam: 06:47 Constitutional: This is a well developed, well nourished patient who is awake, alert, tw4 and in no acute distress. Head/Face: Normocephalic, atraumatic. Chest/axilla: Normal chest wall appearance and motion. Nontender with no deformity. No lesions are appreciated. Cardiovascular: Regular rate and rhythm with a normal S1 and S2. No gallops, murmurs, or rubs. Normal PMI, no JVD. No pulse deficits. Respiratory: Lungs have equal breath sounds bilaterally, clear to auscultation and percussion. No rales, rhonchi or wheezes noted. No increased work of breathing, no retractions or nasal flaring. Abdomen/GI: Soft, non-tender, with normal bowel sounds. No distension or tympany. No guarding or rebound. No evidence of tenderness throughout. 06:47 Skin: cellulitis, that is minimal. Vital Signs: 07/13 22:24 BP 118 / 82; Pulse 111; Resp 16 S; Temp 98.5(O); Pulse Ox 100% on R/A; Weight 95.25 kg bb (R); Height 5 ft. 3 in. (160.02 cm) (R); Pain 9/10; 22:24 Body Mass Index 37.20 (95.25 kg, 160.02 cm) bb MDM: 22:14 Patient medically screened. tw4 22:51 Medical screen evaluation completed. EMTALA emergency medical condition absent. tw4 07/14 06:51 Differential diagnosis: allergic reaction, cellulitis, insect bite. Data reviewed: tw4 vital signs, nurses notes. Counseling: I had a detailed discussion with the patient and/or guardian regarding: the historical points, exam findings, and any diagnostic results supporting the discharge/admit diagnosis. Special discussion: I discussed with the patient/guardian in detail that at this point there is no indication for admission to the hospital. It is understood, however, that if the symptoms persist or worsen the patient needs to return immediately for re-evaluation. Administered Medications: No medications were administered Disposition: 07/14/19 22:52 Discharged to Home. Impression: Cellulitis of right lower limb. - Condition is Stable. - Discharge Instructions: Cellulitis, Adult. - Medication Reconciliation Form, Thank You Letter, Antibiotic Education, Prescription Opioid Use form. - Follow up: Private Physician; When: Upon discharge from the Emergency Department; Reason: Recheck today's complaints, Continuance of care, Re-evaluation by your physician. - Problem is new. - Symptoms have improved. Signatures: Rin Nassar RN RN fc Mariajose Torres RN RN bb Blake Ribeiro MD MD tw4 Corrections: (The following items were deleted from the chart) 07/13 23:21 22:52 07/14/2019 22:52 Discharged to Home. Impression: Cellulitis of right lower limb. fc Condition is Stable. Forms are Medication Reconciliation Form, Thank You Letter, Antibiotic Education, Prescription Opioid Use. Follow up: Private Physician; When: Upon discharge from the Emergency Department; Reason: Recheck today's complaints, Continuance of care, Re-evaluation by your physician. Problem is new. Symptoms have improved. tw4
[2019-07-14 23:26] VITALS: BP 118/82; TEMP 98.5; O2SAT 100
== END 2019-07-14 23:21 | disposition home or self-care (01) ==
LOC: ER 22:01
DX: L03.115 Cellulitis of right lower limb (principal); F17.210 Nicotine dependence, cigarettes, uncomplicated
CPT/HCPCS: 99283

== ENCOUNTER 2020-02-22 00:35 | Emergency (ER) | payer SELFPAY ==
--- OUTSIDE RECORDS SUMMARY | 2020-02-22 00:36 | XMS REPORT | Continuity of Care Document ---
:1975 Author Organization [facility] t Address [address] [place] [address] Care Team Providers Name Role Phone Danii Anaya Attending Clinician Zay Burgess DO Attending Clinician Problems This patient has no known problems. Allergies, Adverse Reactions, Alerts This patient has no known allergies or adverse reactions. Medications This patient has no known medications. Procedures This patient has no known procedures. Encounters Start End Encounter Admission Attending Care Care Encounter Source Date/Time Date/Time Type Type Clinicians Facility Department ID 2019-07-24 2019-07-24 Emergency Lilli Paige [facility] 1.2. [id number] 19:48:59 19:59:00 Cara Burgess [id number] [place] [id number] [place] [id number] Results This patient has no known results.
--- NOTE | 2020-02-22 01:23 | ER ---
Nurse's Notes [facility] Name: Julieta Gauthier Age: 45 yrs Sex: Female : 1975 Arrival Date: 02/22/2020 Time: 00:36 Bed 8 Private MD: Diagnosis: Tinea pedis;Cellulitis and acute lymphangitis of other parts of limb-foot/toe Presentation: 02/21 00:49 Chief complaint: Patient states: my right foot is hurting started couple of weeks ago rr5 then 2-3 hours ago it gets worst. denies trauma, denies fever. Coronavirus screen: Client denies travel out of the [place] in the last 14 days. At this time, the client does not indicate any symptoms associated with coronavirus-19. Ebola Screen: Patient negative for fever greater than or equal to 101.5 degrees Fahrenheit, and additional compatible Ebola Virus Disease symptoms Patient denies exposure to infectious person. Patient denies travel to an Ebola-affected area in the 21 days before illness onset. Initial Sepsis Screen: Does the patient meet any 2 criteria? No. Patient's initial sepsis screen is negative. Does the patient have a suspected source of infection? No. Patient's initial sepsis screen is negative. Risk Assessment: Do you want to hurt yourself or someone else? Patient reports no desire to harm self or others. Onset of symptoms was February 22, 2020. 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 - Social history:: Smoking status: Patient reports the use of cigarette tobacco products, smokes one-half pack cigarettes per day, Patient/guardian denies using alcohol, street drugs. - Family history:: not pertinent. Screenin:53 Abuse screen: Denies threats or abuse. Denies injuries from another. Nutritional rr5 screening: No deficits noted. Tuberculosis screening: No symptoms or risk factors identified. Fall Risk None identified. Total Lanier Fall Scale indicates No Risk (0-24 pts). Assessment: 00:50 General: Appears in no apparent distress. comfortable, Behavior is calm, cooperative, rr5 appropriate for age. Pain: Complains of pain in arch of right foot Pain currently is 7 out of 10 on a pain scale. Quality of pain is described as aching, Pain began gradually, Is intermittent. Neuro: Level of Consciousness is awake, alert, obeys commands, Oriented to person, place, time, situation. Cardiovascular: Capillary refill < 3 seconds Patient's skin is warm and dry. Respiratory: Airway is patent Respiratory effort is even, unlabored, Respiratory pattern is regular, symmetrical. GI: No signs and/or symptoms were reported involving the gastrointestinal system. : No signs and/or symptoms were reported regarding the genitourinary system. EENT: No signs and/or symptoms were reported regarding the EENT system. Derm: Wound noted arch of right foot Wound is dry skin around open wound approximate 2x3cm. Musculoskeletal: Capillary refill < 3 seconds. Vital Signs: 00:49 BP 100 / 62; Pulse 100; Resp 16; Temp 98.5; Pulse Ox 100% ; Weight 97.07 kg; Height 5 rr5 ft. 2 in. (157.48 cm); Pain 7/10; 00:49 Body Mass Index 39.14 (97.07 kg, 157.48 cm) rr5 ED Course: 00:36 Patient arrived in ED. cl3 00:43 Gurpreet Arriaga, BRIELLE is Primary Nurse. rr5 00:43 Latrell Yeboah MD is Attending Physician. sanjay 00:52 Triage completed. rr5 00:53 Arm band placed on right wrist. rr5 00:57 Patient has correct armband on for positive identification. Call light in reach. rr5 01:21 Niels Webb DPM is Referral Physician. sanjay 01:31 Wound care: to blister wound located on right foot was cleaned with Hibiclens, soaked rr5 in irrigated with normal saline, dressed with 4X4s, nystatin, Patient tolerated well. 01:33 No provider procedures requiring assistance completed. Patient did not have IV access rv during this emergency room visit. Administered Medications: 01:25 Drug: nystatin 1 application Route: Topical; Site: affected area; rr5 01:32 Follow up: Response: Medication administered at discharge. rv 01:30 Drug: Bactrim (160 mg-800 mg (DS) 1 tablet Route: PO; rr5 01:32 Follow up: Response: Medication administered at discharge. rv 01:30 Drug: Doxycycline 200 mg Route: PO; rr5 01:32 Follow up: Response: Medication administered at discharge. rv 01:30 Drug: Motrin 600 mg Route: PO; rr5 01:33 Follow up: Response: Medication administered at discharge. 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 Exp: rv 06/22/2021. Lot #: [id number]. } Route: IM; Site: right deltoid; 01:33 Follow up: Response: Medication administered at discharge. rv Outcome: 01:22 Discharge ordered by . sanjay 01:33 Discharged to home ambulatory. rv 01:33 Condition: good 01:33 Discharge instructions given to patient, Instructed on discharge instructions, follow up and referral plans. medication usage, Demonstrated understanding of instructions, follow-up care, medications. 01:33 Prescriptions given X 4. rv 01:33 Patient left the ED. rv Signatures: Ltarell Yeboah MD MD cha Vicente, Ronaldo, RN RN rv Gurpreet Arriaga RN RN rrJanie Gutiérrez cl3
--- NOTE | 2020-02-22 01:23 | EDPHYS ---
Physician Documentation [facility] Name: Julieta Gauthier Age: 45 yrs Sex: Female : 1975 Arrival Date: 02/22/2020 Time: 00:36 Bed 8 Private MD: ED Physician Latrell Yeboah HPI: 02/21 01:16 This 45 yrs old Female presents to ER via Ambulatory with complaints of Foot sanjay Pain. 01:16 The patient presents with decreased range of motion, an injury, pain, swelling, sanjay tenderness. The complaints affect the right foot. Context: The problem was sustained at an unknown location, resulted from wet shoes, work. Onset: The symptoms/episode began/occurred last week. Modifying factors: The symptoms are alleviated by elevation of extremity, the symptoms are aggravated by movement. Associated signs and symptoms: The patient has no apparent associated signs or symptoms. Severity of symptoms: At their worst the symptoms were mild, in the emergency department the symptoms are unchanged. The patient has not experienced similar symptoms in the past. 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 - Social history:: Smoking status: Patient reports the use of cigarette tobacco products, smokes one-half pack cigarettes per day, Patient/guardian denies using alcohol, street drugs. - Family history:: not pertinent. ROS: 01:16 Constitutional: Negative for fever, chills, and weight loss, Eyes: Negative for injury, sanjay pain, redness, and discharge, ENT: Negative for injury, pain, and discharge, Neck: Negative for injury, pain, and swelling, Cardiovascular: Negative for chest pain, palpitations, and edema, Respiratory: Negative for shortness of breath, cough, wheezing, and pleuritic chest pain, Abdomen/GI: Negative for abdominal pain, nausea, vomiting, diarrhea, and constipation, Back: Negative for injury and pain, : Negative for injury, bleeding, discharge, and swelling, Skin: Negative for injury, rash, and discoloration, Neuro: Negative for headache, weakness, numbness, tingling, and seizure, Psych: Negative for depression, anxiety, suicide ideation, homicidal ideation, and hallucinations, Allergy/Immunology: Negative for hives, rash, and allergies, Endocrine: Negative for neck swelling, polydipsia, polyuria, polyphagia, and marked weight changes, Hematologic/Lymphatic: Negative for swollen nodes, abnormal bleeding, and unusual bruising. 01:16 MS/extremity: Positive for pain, swelling, tenderness, of the lateral aspect of right toes, plantar aspect of right fifth toe and right fifth toe. Exam: 01:16 Constitutional: This is a well developed, well nourished patient who is awake, alert, sanjay and in no acute distress. Head/Face: Normocephalic, atraumatic. Eyes: Pupils equal round and reactive to light, extra-ocular motions intact. Lids and lashes normal. Conjunctiva and sclera are non-icteric and not injected. Cornea within normal limits. Periorbital areas with no swelling, redness, or edema. ENT: Nares patent. No nasal discharge, no septal abnormalities noted. Tympanic membranes are normal and external auditory canals are clear. Oropharynx with no redness, swelling, or masses, exudates, or evidence of obstruction, uvula midline. Mucous membranes moist. Neck: Trachea midline, no thyromegaly or masses palpated, and no cervical lymphadenopathy. Supple, full range of motion without nuchal rigidity, or vertebral point tenderness. No Meningismus. Chest/axilla: Normal chest wall appearance and motion. Nontender with no deformity. No lesions are appreciated. Cardiovascular: Regular rate and rhythm with a normal S1 and S2. No gallops, murmurs, or rubs. Normal PMI, no JVD. No pulse deficits. Respiratory: Lungs have equal breath sounds bilaterally, clear to auscultation and percussion. No rales, rhonchi or wheezes noted. No increased work of breathing, no retractions or nasal flaring. Abdomen/GI: Soft, non-tender, with normal bowel sounds. No distension or tympany. No guarding or rebound. No evidence of tenderness throughout. Back: No spinal tenderness. No costovertebral tenderness. Full range of motion. MS/ Extremity: Pulses equal, no cyanosis. Neurovascular intact. Full, normal range of motion. Neuro: Awake and alert, GCS 15, oriented to person, place, time, and situation. Cranial nerves II-XII grossly intact. Motor strength 5/5 in all extremities. Sensory grossly intact. Cerebellar exam normal. Normal gait. Psych: Awake, alert, with orientation to person, place and time. Behavior, mood, and affect are within normal limits. 01:16 Musculoskeletal/extremity: ROM: intact in all extremities, full active range of motion, full passive range of motion, Circulation is intact in all extremities. Sensation intact. Compartment Syndrome exam of affected extremity: is normal. 01:16 Skin: Appearance: Color: normal in color, Temperature: normal temperature, Moisture: normal moisture, petechiae, not noted, ecchymosis, not noted, diaphoresis is not appreciated. Vital Signs: 00:49 BP 100 / 62; Pulse 100; Resp 16; Temp 98.5; Pulse Ox 100% ; Weight 97.07 kg; Height 5 rr5 ft. 2 in. (157.48 cm); Pain 7/10; 00:49 Body Mass Index 39.14 (97.07 kg, 157.48 cm) rr5 MDM: 00:50 Patient medically screened. [facility] 01:20 Differential diagnosis: penetrating trauma, cellulitis. Data reviewed: vital signs, [facility] nurses notes, lab test result(s). Data interpreted: assistant chief engineer: rate is 100 beats/min, rhythm is regular, Pulse oximetry: on room air is 100 %. Test interpretation: by ED physician or midlevel provider: plain radiologic studies. 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 02/21 01:32 Order name: Glucose, Ancillary Testing EDIN 02/21 01:08 Order name: Blood Glucose Level; Complete Time: 01:29 sanjay 02/21 01:25 Order name: Wound dressing; Complete Time: :30 [facility] Administered Medications: 01:25 Drug: nystatin 1 application Route: Topical; Site: affected area; rr5 01:32 Follow up: Response: Medication administered at discharge. rv 01:30 Drug: Bactrim (160 mg-800 mg (DS) 1 tablet Route: PO; rr5 01:32 Follow up: Response: Medication administered at discharge. rv 01:30 Drug: Doxycycline 200 mg Route: PO; rr5 01:32 Follow up: Response: Medication administered at discharge. rv 01:30 Drug: Motrin 600 mg Route: PO; rr5 01:33 Follow up: Response: Medication administered at discharge. 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 Exp: rv 06/22/2021. Lot #: [id number]. } Route: IM; Site: right deltoid; 01:33 Follow up: Response: Medication administered at discharge. rv Disposition: 02/22/20 01:22 Discharged to Home. Impression: Tinea pedis, Cellulitis and acute lymphangitis of other parts of limb - foot/toe. - Condition is Stable. - Discharge Instructions: Athlete's Foot, Athlete's Foot, [id number], Cellulitis, Adult, Zlfi-vs-Urws. - Prescriptions for Tylenol- Codeine #3 300-30 mg Oral Tablet - take 2 tablets by ORAL route every 6 hours As needed; 16 tablet. Doxycycline Hyclate 100 mg Oral Tablet - take 1 tablet by ORAL route every 12 hours; 20 tablet. Bactrim DS 800- 160 mg Oral Tablet - take 1 tablet by ORAL route every 12 hours for 10 days; 20 tablet. Nystatin- Triamcinolone 100,000-0.1 unit/gram-% Topical Ointment - apply 1 application by TOPICAL route 2 times per day; 30 gram. - Medication Reconciliation Form, Thank You Letter, Antibiotic Education, Prescription Opioid Use form. - Follow up: Private Physician; When: 2 - 3 days; Reason: Recheck today's complaints, Continuance of care, Re-evaluation by your physician. Follow up: Niels Webb DPM; When: 2 - 3 days; Reason: Recheck today's complaints, Continuance of care, Re-evaluation by your physician. - Problem is new. - Symptoms have improved. Signatures: Dispatcher [employer] EDMS Latrell Yeboah MD MD cha Vicente, Ronaldo RN RN rv Gurpreet Arriaga RN RN rr5 Corrections: (The following items were deleted from the chart) 01:22 02/22/2020 01:22 Discharged to Home. Impression: Tinea pedis; Cellulitis and rv acute lymphangitis of other parts of limb - foot/toe. Condition is Stable. Forms are Medication Reconciliation Form, Thank You Letter, Antibiotic Education, Prescription Opioid Use. Follow up: Private Physician; When: 2 - 3 days; Reason: Recheck today's complaints, Continuance of care, Re-evaluation by your physician. Follow up: Dr. Niels Webb; When: 2 - 3 days; Reason: Recheck today's complaints, Continuance of care, Re-evaluation by your physician. Problem is new. Symptoms have improved. sanjay
[2020-02-22 03:47] VITALS: BP 100/62; TEMP 98.5; O2SAT 100
== END 2020-02-22 01:33 | disposition home or self-care (01) ==
LOC: ER 00:35
DX: B35.3 Tinea pedis (principal); I89.1 Lymphangitis; L03.115 Cellulitis of right lower limb; F17.210 Nicotine dependence, cigarettes, uncomplicated
CPT/HCPCS: 82947; 90471; 99284

== ENCOUNTER 2020-04-19 17:39 | Emergency (ER) | payer SELFPAY ==
--- OUTSIDE RECORDS SUMMARY | 2020-04-19 17:41 | XMS REPORT | Continuity of Care Document ---
:1975 Author Organization [facility] t Address [address] [place] [address] [address] [place] [address] Care Team Providers Name Role Phone Danii [...] Department ID 2019-07-24 2019-07-24 Emergency Lilli Paige [facility] 1.2. [id number] 19:48:59 19:59:00 Cara Burgess [id number] 0 [place] [id number] [place] [phone] [id number] Results This patient has no known results.
[2020-04-19] MEDS ORDERED: HYDROCODONE/APAP 7.5/325 MG TAB ONE (20:37)
[2020-04-19] MEDS ORDERED: LIDOCAINE 1% 20 ML MDV ONE (20:55)
[2020-04-19] MEDS ORDERED: BUPIVACAINE 0.5% PF 10 ML VIAL ONE (20:55)
--- NOTE | 2020-04-19 20:58 | ER ---
Nurse's Notes [facility] Name: Julieta Gauthier Age: 45 yrs Sex: Female : 1975 Arrival Date: 04/19/2020 Time: 17:42 Bed 25 Private MD: Diagnosis: Cutaneous abscess of right foot;Cellulitis of right lower limb-foot Presentation: 04/19 17:53 Chief complaint: Patient states: Bottom of right foot has a callus x 1 month, last 3 jl7 days it looks like an abscess and is extremely painful to walk on. Coronavirus screen: Client denies travel out of the [place] in the last 14 days. At this time, the client does not indicate any symptoms associated with coronavirus-19. Ebola Screen: No symptoms or risks identified at this time. Initial Sepsis Screen: Does the patient meet any 2 criteria? No. Patient's initial sepsis screen is negative. Does the patient have a suspected source of infection? No. Patient's initial sepsis screen is negative. Risk Assessment: Do you want to hurt yourself or someone else? Patient reports no desire to harm self or others. Onset of symptoms was April 16, 2020. Care prior to arrival: None. 17:53 Method Of Arrival: Ambulatory jl7 17:53 Acuity: GIANNA 4 jl7 Triage Assessment: 17:55 General: Appears in no apparent distress. uncomfortable, Behavior is calm, cooperative, jl7 appropriate for age. Pain: Complains of pain in ball of right foot Pain currently is 10 out of 10 on a pain scale. 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 - Social history:: Smoking status: Patient reports the use of cigarette tobacco products, smokes .25 packs per day. Screenin:33 Abuse screen: Denies threats or abuse. Denies injuries from another. Nutritional zb screening: No deficits noted. Tuberculosis screening: No symptoms or risk factors identified. Fall Risk None identified. Assessment: 20:27 General: Appears in no apparent distress. uncomfortable, Behavior is calm, cooperative, zb appropriate for age. Pain: Complains of pain in right foot and ball of right foot Pain radiates to ball of right foot Pain currently is 8 out of 10 on a pain scale. Quality of pain is described as. Neuro: Level of Consciousness is awake, alert, obeys commands, Oriented to person, place, time, situation. Cardiovascular: Capillary refill < 3 seconds in bilateral fingers Patient's skin is warm and dry. Respiratory: Airway is patent Respiratory effort is even, unlabored, Respiratory pattern is regular, symmetrical. GI: No signs and/or symptoms were reported involving the gastrointestinal system. : No signs and/or symptoms were reported regarding the genitourinary system. EENT: No signs and/or symptoms were reported regarding the EENT system. Derm: Skin is healthy with good turgor, Skin is dry, Skin is normal. Derm: Abscess. Derm: Wound noted right foot and ball of right foot Wound is pinkish/reddish area, flakey area near 5th, 4th and 3rd digit. Musculoskeletal: Circulation, motion, and sensation intact. Capillary refill < 3 seconds, in bilateral fingers. Range of motion: intact in all extremities. Musculoskeletal: Musculoskeletal:. Injury Description:. 21:20 Reassessment: Patient appears in no apparent distress at this time. Patient and/or zb family updated on plan of care and expected duration. Pain level reassessed. Patient is alert, oriented x 3, equal unlabored respirations, skin warm/dry/pink. pt states she feels a lot better able to stand on feet and ambulate. Patient states feeling better. Patient states symptoms have improved. Vital Signs: 17:53 BP 134 / 87; Pulse 96; Resp 17; Temp 97.4; Pulse Ox 100% ; Weight 97.52 kg; Height 5 jl7 ft. 3 in. (160.02 cm); Pain 10/10; 20:01 BP 138 / 83; Pulse 86; Resp 18; Pulse Ox 100% on R/A; Pain 8/10; tt3 21:19 BP 129 / 97; Pulse 90; Resp 16; Pulse Ox 99% on R/A; zb 17:53 Body Mass Index 38.09 (97.52 kg, 160.02 cm) jl7 ED Course: 17:42 Patient arrived in ED. bp1 17:55 Triage completed. jl7 17:55 Arm band placed on right wrist. Patient placed in waiting room, Patient notified of jl7 wait time. 19:51 Latrell Hernandez PA is PHCP. cp 19:51 Ronald Mendoza MD is Attending Physician. cp 20:14 Marleni Ivan RN is Primary Nurse. zb 20:35 XRAY Foot RIGHT 3 View In Process Unspecified. EDMS 20:36 Patient has correct armband on for positive identification. Bed in low position. Call zb light in reach. Pulse ox on. NIBP on. Door closed. Noise minimized. 20:36 Wound culture swab sent to lab. zb 21:19 No provider procedures requiring assistance completed. Patient did not have IV access zb during this emergency room visit. Administered Medications: 20:26 Drug: Hydrocodone-Acetaminophen (7.5 mg-325 mg) 1 tabs Route: PO; zb 21:19 Follow up: Response: No adverse reaction; Pain is decreased; RASS: Alert and Calm (0) zb 20:45 Drug: Lidocaine-Epinephrine -1%: (1:100,000) 5 ml {Note: administered by provider .} zb Volume: 20 ml; Route: Infiltration; 21:20 Follow up: Response: No adverse reaction zb 20:45 Drug: Marcaine (0.5 %) 5 ml {Note: administed by provider .} Volume: 10 ml; Route: zb Infiltration; 21:20 Follow up: Response: No adverse reaction zb Outcome: 20:56 Discharge ordered by MD. cp 21:19 Discharged to home ambulatory. zb 21:19 Condition: stable 21:19 Condition: improved 21:19 Discharge instructions given to patient, Instructed on discharge instructions, follow up and referral plans. medication usage, Demonstrated understanding of instructions, follow-up care, medications, wound care, Prescriptions given X 4. 21:21 Patient left the ED. zb Addendum: 04/23/2020 09:40 Addendum: Culture Results: Positive wound culture. No further action required. Bacteria a a5 sensitive to prescribed antibiotic. Signatures: Dispatcher [employer] EDMS Maria Eugenia Freeman RN RN aa5 Latrell Hernandez PA PA cp Toshia Hidalgo RN RN jl7 [place] bp1 Reagan Mcfarlane tt3 Marleni Ivan, RN RN zb
--- NOTE | 2020-04-19 20:58 | EDPHYS ---
Physician Documentation [facility] Name: Julieta Gauthier Age: 45 yrs Sex: Female : 1975 Arrival Date: 04/19/2020 Time: 17:42 Bed 25 Private MD: ED Physician Ronald Mendoza HPI: 04/19 20:00 This 45 yrs old Female presents to ER via Ambulatory with complaints of Foot cp Pain. 20:00 The patient presents with pain, that is acute. The complaints affect the plantar cp surface of right foot. Context: resulted from an unknown cause, the patient can fully bear weight, the patient is able to ambulate, with moderate difficulty, Problem is a result from a previous injury: No. Onset: The symptoms/episode began/occurred 1 month(s) ago. 20:00 Associated signs and symptoms: Pertinent negatives fever, drainage from area. 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 - Social history:: Smoking status: Patient reports the use of cigarette tobacco products, smokes .25 packs per day. ROS: 20:05 MS/extremity: Positive for pain, tenderness, of the plantar surface of right foot. cp 20:05 Constitutional: Negative for body aches, chills, fever, poor PO intake. cp 20:05 Cardiovascular: Negative for chest pain, edema. 20:05 Respiratory: Negative for cough, shortness of breath, wheezing. 20:05 Abdomen/GI: Negative for abdominal pain. 20:05 All other systems are negative. Exam: 20:10 Constitutional: The patient appears in no acute distress, alert, awake, non-toxic, well cp developed, well nourished. 20:10 Head/Face: Normocephalic, atraumatic. cp 20:10 Cardiovascular: Rate: normal, Edema: is not appreciated. 20:10 Respiratory: the patient does not display signs of respiratory distress, Respirations: normal, no use of accessory muscles, labored breathing, is not present. 20:10 Musculoskeletal/extremity: Extremities: grossly normal except: noted in the plantar surface of right foot: erythema, pain, tenderness. 20:10 Skin: abscess, that is small, of the plantar surface of right foot, with surrounding cellulitis, that is mild. Vital Signs: 17:53 BP 134 / 87; Pulse 96; Resp 17; Temp 97.4; Pulse Ox 100% ; Weight 97.52 kg; Height 5 jl7 ft. 3 in. (160.02 cm); Pain 10/10; 20:01 BP 138 / 83; Pulse 86; Resp 18; Pulse Ox 100% on R/A; Pain 8/10; tt3 21:19 BP 129 / 97; Pulse 90; Resp 16; Pulse Ox 99% on R/A; zb 17:53 Body Mass Index 38.09 (97.52 kg, 160.02 cm) jl7 MDM: 20:05 Patient medically screened. cp 20:10 Differential diagnosis: closed fracture, abscess, cellulitis. cp 20:55 Data reviewed: vital signs, nurses notes, radiologic studies, plain films. cp 20:55 Test interpretation: by ED physician or midlevel provider: xrays of right foot negative cp for foreign body and/or fracture. Counseling: I had a detailed discussion with the patient and/or guardian regarding: the historical points, exam findings, and any diagnostic results supporting the discharge/admit diagnosis, radiology results, to return to the emergency department if symptoms worsen or persist or if there are any questions or concerns that arise at home. Response to treatment: the patient's symptoms have markedly improved after treatment, and as a result, I will discharge patient. 04/19 20:01 Order name: Wound Culture cp 04/19 20:00 Order name: XRAY Foot RIGHT 3 View cp 04/19 20:00 Order name: I\T\D Setup; Complete Time: 20:26 cp Administered Medications: 20:26 Drug: Hydrocodone-Acetaminophen (7.5 mg-325 mg) 1 tabs Route: PO; zb 21:19 Follow up: Response: No adverse reaction; Pain is decreased; RASS: Alert and Calm (0) zb 20:45 Drug: Lidocaine-Epinephrine -1%: (1:100,000) 5 ml {Note: administered by provider .} zb Volume: 20 ml; Route: Infiltration; 21:20 Follow up: Response: No adverse reaction zb 20:45 Drug: Marcaine (0.5 %) 5 ml {Note: administed by provider .} Volume: 10 ml; Route: zb Infiltration; 21:20 Follow up: Response: No adverse reaction zb Disposition: 21:25 Chart complete. cp 04/20 05:54 Co-signature as Attending Physician, Ronald Mendoza MD. [facility] Disposition: 04/19/20 20:56 Discharged to Home. Impression: Cutaneous abscess of right foot, Cellulitis of right lower limb - foot. - Condition is Stable. - Discharge Instructions: Skin Abscess, Cellulitis, Adult, Incision and Drainage. - Prescriptions for Clotrimazole 1 % Topical Cream - Apply to affected area 1 application by TOPICAL route every 12 hours for 7 days apply as directed to right toes and bottom of right foot; 15 gram. Ibuprofen 800 mg Oral Tablet - take 1 tablet by ORAL route every 8 hours As needed take with food; 30 tablet. Doxycycline Hyclate 100 mg Oral Tablet - take 1 tablet by ORAL route every 12 hours; 20 tablet. Bactrim DS 800- 160 mg Oral Tablet - take 1 tablet by ORAL route every 12 hours for 10 days; 20 tablet. - Medication Reconciliation Form, Thank You Letter, Antibiotic Education, Prescription Opioid Use, Work release form form. - Follow up: Private Physician; When: 2 - 3 days; Reason: Worsening of condition. - Problem is new. - Symptoms have improved. Signatures: Dispatcher [employer] EDMS Latrell Hernandez PA PA cp Toshia Hidalgo RN RN 7 Ronald Mendoza MD MD [facility] Marleni Ivan RN RN zb Corrections: (The following items were deleted from the chart) 04/19 21:03 20:56 04/19/2020 20:56 Discharged to Home. Impression: Cutaneous abscess of right foot. cp Condition is Stable. Forms are Medication Reconciliation Form, Thank You Letter, Antibiotic Education, Prescription Opioid Use. Follow up: Private Physician; When: 2 - 3 days; Reason: Worsening of condition. Problem is new. Symptoms have improved. cp : 21:03 04/19/2020 20:56 Discharged to Home. Impression: Cutaneous abscess of right foot; zb Cellulitis of right lower limb - foot. Condition is Stable. Discharge Instructions: Skin Abscess, Incision and Drainage. Prescriptions for Clotrimazole 1 % Topical Cream - Apply to affected area 1 application by TOPICAL route every 12 hours for 7 days apply as directed to right toes and bottom of right foot; 15 gram, Ibuprofen 800 mg Oral Tablet - take 1 tablet by ORAL route every 8 hours As needed take with food; 30 tablet, Doxycycline Hyclate 100 mg Oral Tablet - take 1 tablet by ORAL route every 12 hours; 20 tablet, Bactrim DS 800-160 mg Oral Tablet - take 1 tablet by ORAL route every 12 hours for 10 days; 20 tablet. and Forms are Medication Reconciliation Form, Thank You Letter, Antibiotic Education, Prescription Opioid Use. Follow up: Private Physician; When: 2 - 3 days; Reason: Worsening of condition. Problem is new. Symptoms have improved. cp
[2020-04-19] MEDS ORDERED: LIDOCAINE 1% MPF 30 ML VIAL ONE (20:59)
[2020-04-19] MEDS ORDERED: LIDOCAINE 1% W/EPI 1:100,000 MDV 50 ML VIAL ONE (21:00)
--- NOTE | 2020-04-19 21:09 | RAD REPORT ---
EXAM DESCRIPTION: RAD - Foot Right 3 View - 04/19/2020 8:35 pm CLINICAL HISTORY: PAIN COMPARISON: Foot Right 3 View dated 10/15/2018 FINDINGS: No fracture, dislocation or periosteal reaction. No acute or destructive bone process. Sma ll plantar spur is present. No air or foreign body in the soft tissues. IMPRESSION: Negative right foot examination.
[2020-04-19 21:57] VITALS: TEMP 97.4
[2020-04-19 22:00] VITALS: BP 129/97; O2SAT 99
== END 2020-04-19 21:21 | disposition home or self-care (01) ==
LOC: ER 17:39
DX: L03.115 Cellulitis of right lower limb (principal); L02.415 Cutaneous abscess of right lower limb; F17.210 Nicotine dependence, cigarettes, uncomplicated
CPT/HCPCS: 87070; 87077; 87186; 87205; 99284

== ENCOUNTER 2020-08-02 10:44 | Emergency (ER) | payer SELFPAY ==
--- NOTE | 2020-08-02 15:00 | ER ---
Nurse's Notes [facility] Name: Julieta Gauthier Age: 45 yrs Sex: Female : 1975 Arrival Date: 08/02/2020 Time: 10:47 Bed Waiting Private MD: Diagnosis: Presentation: 08/02 11:05 Coronavirus screen: Client denies travel out of the [place] in the last 14 days. Client ss presents with at least one sign or symptom that may indicate coronavirus-19. Standard/surgical mask placed on the client. Coronavirus screen: chills, congestion, cough unrelated to allergies, diarrhea, difficulty breathing, fatigue, headache, muscle pain, nausea, runny nose, shaking with chills, shortness of breath, sore throat, loss of taste or smell, Client presents with at least one sign or symptom that may indicate coronavirus-19. Standard/surgical mask placed on the client. Ebola Screen: Patient denies travel to an Ebola-affected area in the 21 days before illness onset. Initial Sepsis Screen: Does the patient meet any 2 criteria? HR > 90 bpm. No. Patient's initial sepsis screen is negative. Does the patient have a suspected source of infection? Yes: Productive cough/pneumonia. Risk Assessment: Do you want to hurt yourself or someone else? Patient reports no desire to harm self or others. Onset of symptoms was August 01, 2020. 11:05 Method Of Arrival: Ambulatory ss 11:05 Acuity: GIANNA 3 ss 11:07 Chief complaint: Patient states: Cough, sore throat, body aches, chills, fatigue for 2 ss days. + nausea. Exposed to a covid positive co-worker last week. Historical: - Allergies: 11:07 No Known Allergies; ss - PMHx: 11:07 Migraines; ss - PSHx: 11:07 Tonsillectomy; Tubal ligation; Cholecystectomy; ss - Immunization history:: Flu vaccine is not up to date. - Social history:: Smoking status: Patient reports the use of cigarette tobacco products, smokes one-half pack cigarettes per day. Vital Signs: 11:05 BP 107 / 84; Pulse 107; Resp 17; Temp 98.8; Pulse Ox 99% ; Weight 102.97 kg; Height 5 ll1 ft. 2 in. (157.48 cm); Pain 8/10; 11:05 Body Mass Index 41.52 (102.97 kg, 157.48 cm) ll1 ED Course: 10:47 Patient arrived in ED. ds1 11:07 Triage completed. ss 11:07 Arm band placed on. ss Administered Medications: No medications were administered Outcome: 15:00 Patient left the ED. ll1 Signatures: Daylin Floyd ds1 Bety Hand RN RN ss Lesly Jurado RN RN ll1 Corrections: (The following items were deleted from the chart) 13:07 11:05 Pulse 107bpm; Resp 17bpm; Pulse Ox 99%; Temp 98.8F; 102.97 kg; Height 5 ft. 2 ll1 in.; BMI: 41.5; Pain 8/10; ss
[2020-08-02 15:09] VITALS: BP 107/84; TEMP 98.8; O2SAT 99
== END 2020-08-02 15:00 | disposition left against medical advice (07) ==
LOC: ER 10:44
DX: Z53.21 Procedure and treatment not carried out due to patient leaving prior to being seen by health care provider (principal)
CPT/HCPCS: 99281

== ENCOUNTER 2020-11-21 19:11 | Emergency (ER) | payer SELFPAY ==
[2020-11-21] MEDS ORDERED: ONDANSETRON 4 MG (ODT) TAB ONE (21:18)
[2020-11-21] MEDS ORDERED: ACETAMINOPHEN 500 MG TAB ONE (21:20)
[2020-11-21 22:28] LABS: SARS-COV-2 RT PCR POSITIVE (NEGATIVE)
--- NOTE | 2020-11-21 22:47 | EDPHYS ---
Physician Documentation [facility] Name: Julieta Gauthier Age: 45 yrs Sex: Female : 1975 Arrival Date: 11/21/2020 Time: 19:12 Bed Waiting Private MD: ED Physician Ronald Mendoza HPI: 11/21 22:30 This 45 yrs old Female presents to ER via Ambulatory with complaints of LOSS cp OF TASTE, Cough, Breathing Difficulty, COVID EXPOSURE, Headache, CHILLS. 22:30 The patient or guardian reports cough, that is intermittent. Onset: The cp symptoms/episode began/occurred 3 day(s) ago. Associated signs and symptoms: Pertinent positives: nausea, sore throat, loss of taste, headache, chills, Pertinent negatives: chest pain, diarrhea, fever, vomiting. 22:30 Patient reports known exposure to COVID-19 at work by multiple employees. cp Historical: - Allergies: 20:51 No Known Allergies; em - PMHx: 20:51 Migraines; em - PSHx: 20:51 Tonsillectomy; tubal; Cholecystectomy; em - Immunization history:: Client reports having NOT received the Covid vaccine. - Social history:: Smoking status: Patient reports the use of cigarette tobacco products, denies chronic smoking, but will smoke occasionally. ROS: 22:35 Constitutional: Positive for body aches, Negative for fever. cp 22:35 Eyes: Negative for injury, pain, redness, and discharge. cp 22:35 ENT: Positive for sore throat, Negative for drainage from ear(s), ear pain, difficulty swallowing, difficulty handling secretions. 22:35 Cardiovascular: Negative for chest pain, palpitations. 22:35 Respiratory: Positive for cough, Negative for shortness of breath, wheezing. 22:35 Abdomen/GI: Positive for nausea, Negative for abdominal pain, vomiting, diarrhea, constipation. 22:35 Skin: Negative for rash. 22:35 Neuro: Positive for headache, Negative for altered mental status, weakness. 22:35 All other systems are negative. Exam: 22:40 Constitutional: The patient appears in no acute distress, alert, awake, non-toxic, well cp developed, well nourished. 22:40 Head/Face: Normocephalic, atraumatic. cp 22:40 Eyes: Periorbital structures: appear normal, Conjunctiva: normal, no exudate, no injection, Sclera: no appreciated abnormality, Lids and lashes: appear normal, bilaterally. 22:40 ENT: External ear(s): are unremarkable, Ear canal(s): are normal, TM's: erythema, is not appreciated, bilaterally, Nose: is normal, Mouth: Lips: moist, Oral mucosa: moist, Posterior pharynx: Airway: no evidence of obstruction, patent, Tonsils: no enlargement, no erythema, no exudate, swelling, is not appreciated, erythema, is not appreciated, exudate, is not appreciated, Voice: is normal. 22:40 Neck: ROM/movement: is normal, is supple, no meningismus, no nuchal rigidity, Lymph nodes: no appreciated lymphadenopathy. 22:40 Chest/axilla: Inspection: normal. 22:40 Cardiovascular: Rate: normal, Rhythm: regular. 22:40 Respiratory: the patient does not display signs of respiratory distress, Respirations: normal, no use of accessory muscles, no retractions, labored breathing, is not present, Breath sounds: are clear throughout, no decreased breath sounds, no stridor, no wheezing. 22:40 Abdomen/GI: Exam negative for discomfort, distension, guarding, Inspection: abdomen appears normal. 22:40 Neuro: Orientation: to person, place \T\ time. Mentation: is normal, Motor: moves all fours, strength is normal, Gait: is steady, at a normal pace, without difficulty. Vital Signs: 20:49 BP 119 / 80; Pulse 93; Resp 18; Temp 97.8; Pulse Ox 100% on R/A; Weight 101.15 kg; em Height 5 ft. 3 in. (160.02 cm); 20:49 Body Mass Index 39.50 (101.15 kg, 160.02 cm) em MDM: 21:00 Differential Diagnosis: Bronchitis Influenza Sinusitis Pharyngitis Viral Syndrome cp Pneumonia. 22:46 Data reviewed: vital signs, nurses notes, lab test result(s). cp 22:46 Counseling: I had a detailed discussion with the patient and/or guardian regarding: the cp historical points, exam findings, and any diagnostic results supporting the discharge/admit diagnosis, lab results, to return to the emergency department if symptoms worsen or persist or if there are any questions or concerns that arise at home. ED course: VSS. Patient appears non-toxic and no signs of respiratory distress. Will discharge to home to 10 day quarantine. 22:47 Patient medically screened. cp 11/21 20:49 Order name: Strep; Complete Time: 22:36 em 11/21 20:56 Order name: Influenza Screen (a \T\ B) cp 11/21 21:55 Order name: Throat Culture EDWY 11/21 22:28 Order name: COVID-19/FLU A+B; Complete Time: 22:36 EDWY 11/21 22:37 Order name: PO challenge cp Administered Medications: No medications were administered Disposition Summary: 11/21/20 22:47 Discharge Ordered Location: Home cp Problem: new cp Symptoms: have improved cp Condition: Stable cp Diagnosis - SARS-associated coronavirus as the cause of diseases classified elsewhere cp - Nausea cp - Cough cp Followup: cp - With: Private Physician - When: 2 - 3 days - Reason: Worsening of condition Discharge Instructions: - Discharge Summary Sheet cp - Nausea, Adult cp - Cough, Adult cp - COVID-19 cp - Things to Know about the COVID-19 Pandemic - [facility] cp - 10 Things You Can Do to Manage Your COVID-19 Symptoms at Home - [facility] cp - COVID-19: Quarantine vs. Isolation - [facility] cp - Prevent the Spread of COVID-19 if You Are Sick - [facility] cp Forms: - Medication Reconciliation Form cp - Thank You Letter cp - Antibiotic Education cp - Work release form cp - Prescription Opioid Use cp Prescriptions: - Zofran 4 mg Oral Tablet - take 1 tablet by ORAL route every 12 hours As needed; 20 tablet; Refills: 0, cp Product Selection Permitted - Tessalon Perles 100 mg Oral Capsule - take 2 capsule by ORAL route every 8 hours As needed; 30 capsule; Refills: 0, cp Product Selection Permitted Addendum: 11/23/2020 06:47 Co-signature as Attending Physician, Ronald Mendoza MD. [facility] Signatures: Dispatcher [employer] Henrique Mariscal, RN RN em Latrell Hernandez PA PA Ronald Greenberg MD MD [email or web address] Corrections: (The following items were deleted from the chart) 11/21 20:52 20:51 Allergies: Aspirin; em em 21:27 20:08 CORONAVIRUS+MR.LAB.BRZ ordered. EDMS EDMS 21:27 20:57 Influenza Screen (A ordered. EDMS EDMS
--- NOTE | 2020-11-21 22:47 | ER ---
Nurse's Notes [facility] Name: Julieta Gauthier Age: 45 yrs Sex: Female : 1975 Arrival Date: 11/21/2020 Time: 19:12 Bed Waiting Private MD: Diagnosis: SARS-associated coronavirus as the cause of diseases classified elsewhere;Nausea;Cough Presentation: 11/21 20:49 Chief complaint: Patient states: pt has been having body aches, loss of smell and em taste, employees have been testing positive, denies fever. Coronavirus screen: sore throat, loss of taste or smell. Ebola Screen: Patient negative for fever greater than or equal to 101.5 degrees Fahrenheit, and additional compatible Ebola Virus Disease symptoms Patient denies exposure to infectious person. Patient denies travel to an Ebola-affected area in the 21 days before illness onset. No symptoms or risks identified at this time. Initial Sepsis Screen: Does the patient meet any 2 criteria? HR > 90 bpm. No. Patient's initial sepsis screen is negative. Does the patient have a suspected source of infection? No. Patient's initial sepsis screen is negative. Risk Assessment: Do you want to hurt yourself or someone else? Patient reports no desire to harm self or others. Onset of symptoms was November 21, 2020. 20:49 Method Of Arrival: Ambulatory em 20:49 Acuity: GIANNA 4 em Historical: - Allergies: 20:51 No Known Allergies; em - PMHx: 20:51 Migraines; em - PSHx: 20:51 Tonsillectomy; tubal; Cholecystectomy; em - Immunization history:: Client reports having NOT received the Covid vaccine. - Social history:: Smoking status: Patient reports the use of cigarette tobacco products, denies chronic smoking, but will smoke occasionally. Screenin:55 Abuse screen: Denies threats or abuse. Nutritional screening: No deficits noted. em Tuberculosis screening: No symptoms or risk factors identified. Fall Risk None identified. Assessment: 22:55 General: Appears in no apparent distress. uncomfortable, Behavior is calm, cooperative, em appropriate for age. Pain: Complains of pain in "body aches". Neuro: Level of Consciousness is awake, alert, Oriented to person, place, time, situation. Cardiovascular: Rhythm is regular. Respiratory: Reports shortness of breath Airway is patent Respiratory effort is even, unlabored, Respiratory pattern is regular, symmetrical. Derm: Skin is intact, is healthy with good turgor, Skin is pink, warm \\T\\ dry. Musculoskeletal: Capillary refill < 3 seconds, Range of motion: intact in all extremities. Vital Signs: 20:49 BP 119 / 80; Pulse 93; Resp 18; Temp 97.8; Pulse Ox 100% on R/A; Weight 101.15 kg; em Height 5 ft. 3 in. (160.02 cm); 20:49 Body Mass Index 39.50 (101.15 kg, 160.02 cm) em ED Course: 19:12 Patient arrived in ED. cf2 20:17 Latrell Hernandez PA is PHCP. cp 20:17 Ronald Mendoza MD is Attending Physician. cp 20:51 Triage completed. em 20:51 Arm band placed on Patient notified of wait time. em 22:55 Henrique Vidal RN is Primary Nurse. em 22:55 Patient has correct armband on for positive identification. em 22:55 No provider procedures requiring assistance completed. Patient did not have IV access em during this emergency room visit. Administered Medications: No medications were administered Outcome: 22:47 Discharge ordered by MD. cp 22:55 Discharged to home ambulatory. em 22:55 Condition: stable 22:55 Discharge instructions given to patient, Instructed on discharge instructions, follow up and referral plans. medication usage, Demonstrated understanding of instructions, follow-up care, medications, Prescriptions given X 2. 22:56 Patient left the ED. em Signatures: Henrique Vidal RN RN em Latrell Hernandez PA PA cp Laisha Graves cf2 Corrections: (The following items were deleted from the chart) 20:52 20:51 Allergies: Aspirin; em em
[2020-11-21 23:48] VITALS: BP 119/80; TEMP 97.8; O2SAT 100
== END 2020-11-21 22:56 | disposition home or self-care (01) ==
LOC: ER 19:11
DX: U07.1 COVID-19 (principal); R05 Cough; F17.210 Nicotine dependence, cigarettes, uncomplicated
CPT/HCPCS: 0240U; 87070; 87081; 99282

== ENCOUNTER 2021-01-04 16:49 | Emergency (ER) | payer SELFPAY ==
--- NOTE | 2021-01-04 18:31 | ER ---
Nurse's Notes [facility] Name: Julieta Gauthier Age: 45 yrs Sex: Female : 1975 Arrival Date: 01/04/2021 Time: 16:54 Bed 19 Private MD: Diagnosis: Acute bronchitis, unspecified Presentation: 01/04 16:58 Chief complaint: Patient states: Headache, congestion, sore throat, SOB since 12/29. Pt kg was COVID + 11/24 and still unable smell or really taste. Coronavirus screen: Vaccine status: Patient reports being unvaccinated. Client denies travel out of the [place] in the last 14 days. congestion, difficulty breathing, shortness of breath, sore throat, loss of taste or smell, Client presents with at least one sign or symptom that may indicate coronavirus-19. Standard/surgical mask placed on the client. Provider contacted for isolation considerations. Client reports previous positive COVID test result. Date of collection: November 24, 2020. Ebola Screen: Patient negative for fever greater than or equal to 101.5 degrees Fahrenheit, and additional compatible Ebola Virus Disease symptoms Patient denies exposure to infectious person. Patient denies travel to an Ebola-affected area in the 21 days before illness onset. Initial Sepsis Screen: Does the patient meet any 2 criteria? No. Patient's initial sepsis screen is negative. Does the patient have a suspected source of infection? No. Patient's initial sepsis screen is negative. Risk Assessment: Do you want to hurt yourself or someone else? Patient reports no desire to harm self or others. Onset of symptoms was December 29, 2020. 16:58 Method Of Arrival: Ambulatory kg 16:58 Acuity: GIANNA 4 kg Triage Assessment: 17:01 General: Appears in no apparent distress. Behavior is calm, cooperative, appropriate kg for age, quiet. Pain: Complains of pain in Head Pain currently is 6 out of 10 on a pain scale. Quality of pain is described as aching. Respiratory: Reports shortness of breath at rest on exertion cough that is productive, Onset: The symptoms/episode began/occurred Tuesday , the patient has mild shortness of breath. 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 - Social history:: Smoking status: Patient reports the use of cigarette tobacco products, smokes one-half pack cigarettes per day, Patient/guardian denies using alcohol, street drugs, The patient lives with family. - Family history:: not pertinent. Screenin:03 Abuse screen: Denies threats or abuse. Denies injuries from another. Nutritional kg screening: No deficits noted. Tuberculosis screening: No symptoms or risk factors identified. Fall Risk None identified. Assessment: 18:59 Cardiovascular: Rhythm is regular. Respiratory: Airway is patent Respiratory effort is tr6 even, Breath sounds are clear. Vital Signs: 16:58 BP 120 / 82; Pulse 84; Resp 20; Temp 97.8(TE); Pulse Ox 97% ; Weight 98.88 kg (R); kg Height 5 ft. 3 in. (160.02 cm) (R); Pain 5/10; 16:58 Body Mass Index 38.62 (98.88 kg, 160.02 cm) kg ED Course: 16:54 Patient arrived in ED. mr 17:01 Triage completed. kg 17:01 Arm band placed on right wrist. kg 17:03 Patient has correct armband on for positive identification. kg 17:06 Terence Ruelas MD is Attending Physician. ma2 17:15 Tiki Lu RN is Primary Nurse. tr6 18:59 No provider procedures requiring assistance completed. Patient did not have IV access tr6 during this emergency room visit. Administered Medications: 18:54 Drug: Zithromax (azithromycin) 500 mg Route: PO; tr6 Outcome: 18:30 Discharge ordered by . ma2 18:59 Discharged to home ambulatory. tr6 18:59 Condition: good 18:59 Discharge instructions given to patient, Instructed on discharge instructions, follow up and referral plans. Demonstrated understanding of instructions, follow-up care, medications, Prescriptions given X 1. 18:59 Patient left the ED. tr6 Signatures: Hui Jeter mr Terence Ruelas MD MD ma2 Tiki Lu, RN RN tr6 Radha Rivero RN RN kg Corrections: (The following items were deleted from the chart) 17:02 17:01 PSHx: [place] teeth; kg kg
--- NOTE | 2021-01-04 18:31 | EDPHYS ---
Physician Documentation [facility] Name: Julieta Gauthier Age: 45 yrs Sex: Female : 1975 Arrival Date: 01/04/2021 Time: 16:54 Bed 19 Private MD: ED Physician Terence Ruelas HPI: 01/04 17:22 This 45 yrs old Female presents to ER via Ambulatory with complaints of ma2 Shortness Of Breath, Headache, No smell/taste. 17:22 The patient has shortness of breath at rest. ma2 17:22 Onset: The symptoms/episode began/occurred gradually, 2 day(s) ago. Associated signs ma2 and symptoms: Pertinent positives: non-productive cough, Pertinent negatives: productive cough, dizziness, hemoptysis, nausea, visual changes. Severity of symptoms: At their worst the symptoms were mild in the emergency department the symptoms are unchanged. The patient has experienced a previous episode. 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 - Social history:: Smoking status: Patient reports the use of cigarette tobacco products, smokes one-half pack cigarettes per day, Patient/guardian denies using alcohol, street drugs, The patient lives with family. - Family history:: not pertinent. ROS: 17:22 Constitutional: Negative for fever, chills, and weight loss. ma2 17:22 All other systems are negative. Exam: 17:22 Constitutional: This is a well developed, well nourished patient who is awake, alert, ma2 and in no acute distress. Head/Face: Normocephalic, atraumatic. Eyes: Pupils equal round and reactive to light, extra-ocular motions intact. Lids and lashes normal. Conjunctiva and sclera are non-icteric and not injected. Cornea within normal limits. Periorbital areas with no swelling, redness, or edema. ENT: red oropharynx, otherwise Nares patent. No nasal discharge, no septal abnormalities noted. Tympanic membranes are normal and external auditory canals are clear. Oropharynx with no redness, swelling, or masses, exudates, or evidence of obstruction, uvula midline. Mucous membranes moist. Neck: Trachea midline, no thyromegaly or masses palpated, and no cervical lymphadenopathy. Supple, full range of motion without nuchal rigidity, or vertebral point tenderness. No Meningismus. Chest/axilla: Normal chest wall appearance and motion. Nontender with no deformity. No lesions are appreciated. Cardiovascular: Regular rate and rhythm with a normal S1 and S2. No gallops, murmurs, or rubs. Normal PMI, no JVD. No pulse deficits. Respiratory: Lungs have equal breath sounds bilaterally, clear to auscultation and percussion. No rales, rhonchi or wheezes noted. No increased work of breathing, no retractions or nasal flaring. Abdomen/GI: Soft, non-tender, with normal bowel sounds. No distension or tympany. No guarding or rebound. No evidence of tenderness throughout. Back: No spinal tenderness. No costovertebral tenderness. Full range of motion. Skin: Warm, dry with normal turgor. Normal color with no rashes, no lesions, and no evidence of cellulitis. MS/ Extremity: Pulses equal, no cyanosis. Neurovascular intact. Full, normal range of motion. Neuro: Awake and alert, GCS 15, oriented to person, place, time, and situation. Cranial nerves II-XII grossly intact. Motor strength 5/5 in all extremities. Sensory grossly intact. Cerebellar exam normal. Normal gait. Vital Signs: 16:58 BP 120 / 82; Pulse 84; Resp 20; Temp 97.8(TE); Pulse Ox 97% ; Weight 98.88 kg (R); kg Height 5 ft. 3 in. (160.02 cm) (R); Pain 5/10; 16:58 Body Mass Index 38.62 (98.88 kg, 160.02 cm) kg MDM: 17:07 Patient medically screened. ma2 17:22 Differential diagnosis: Anxiety Reaction Bronchitis pneumonia, Psychogenic reactive ma2 airway disease. Data reviewed: vital signs, nurses notes. Counseling: I had a detailed discussion with the patient and/or guardian regarding: the historical points, exam findings, and any diagnostic results supporting the discharge/admit diagnosis, the presence of at least one elevated blood pressure reading (>120/80) during this emergency department visit, the need for outpatient follow up. 01/04 18:20 Order name: SARS-COV-2 RT PCR; Complete Time: 18:30 EDMS Administered Medications: 18:54 Drug: Zithromax (azithromycin) 500 mg Route: PO; tr6 Disposition Summary: 01/04/21 18:30 Discharge Ordered Location: Home ma2 Condition: Stable ma2 Diagnosis - Acute bronchitis, unspecified ma2 Followup: ma2 - With: Private Physician - When: Tomorrow - Reason: Continuance of care Discharge Instructions: - Discharge Summary Sheet ma2 - Acute Bronchitis, Adult ma2 Forms: - Medication Reconciliation Form ma2 - Thank You Letter ma2 - Antibiotic Education ma2 - Prescription Opioid Use ma2 - Work release form eb Prescriptions: - Zithromax Z-Catalino 250 mg Oral Tablet - take 1 tablet by ORAL route as directed for 5 days Day 1 - take two (2) tablets ma2 one time. Day 2, 3, 4 , 5 take one (1) tablet once daily.; 6 tablet; Refills: 0, Product Selection Permitted Signatures: Dispatcher [employer] EDMS Terence Ruelas MD MD ma2 Tiki Lu RN RN tr6 Radha Rivero RN RN kg Corrections: (The following items were deleted from the chart) 17:02 17:01 PSHx: [place] teeth; kg kg 17:25 17:08 CORONAVIRUS+MR.LAB.BRZ ordered. EDMS EDMS
[2021-01-04] MEDS ORDERED: AZITHROMYCIN 250 MG TAB ONE (18:46)
[2021-01-04 19:06] VITALS: BP 120/82; TEMP 97.8; O2SAT 97
== END 2021-01-04 18:59 | disposition home or self-care (01) ==
LOC: ER 16:49
DX: J20.9 Acute bronchitis, unspecified (principal); Z20.822 Contact with and (suspected) exposure to COVID-19; F17.210 Nicotine dependence, cigarettes, uncomplicated
CPT/HCPCS: 99283; U0003

== ENCOUNTER 2022-09-09 12:45 | Emergency (ER) | payer OTHER ==
[2022-09-09] MEDS ORDERED: DIPHENHYDRAMINE 25 MG TAB/CAP ONE (14:17)
[2022-09-09] MEDS ORDERED: TETRACAINE HCL 0.5% 4ML OPTH ONE (14:18)
[2022-09-09] MEDS ORDERED: predniSONE 20 MG TAB ONE (14:18)
--- NOTE | 2022-09-09 15:01 | ER ---
Nurse's Notes [facility] Name: Julieta Gauthier Age: 47 yrs Sex: Female : 1975 Arrival Date: 09/09/2022 Time: 12:45 Bed 3 Private MD: Diagnosis: Unspecified acute conjunctivitis, bilateral;Acute allergic reaction Presentation: 09/09 12:51 Chief complaint: Patient states: "About 1045 I laid done for a nap, I woke up because I mb9 felt something crawling on my cheek and swatted it away. My right side of my cheek johnson and now my eyes are sticky, burning, and couldn't open them at first. I can see now but my vision was blurry earlier and super watery. My face feels like its on fire". Coronavirus screen: Vaccine status: Patient reports being unvaccinated. Ebola Screen: No symptoms or risks identified at this time. Initial Sepsis Screen: Does the patient meet any 2 criteria? No. Patient's initial sepsis screen is negative. Does the patient have a suspected source of infection? No. Patient's initial sepsis screen is negative. Risk Assessment: Do you want to hurt yourself or someone else? Patient reports no desire to harm self or others. Onset of symptoms was September 09, 2022. 12:51 Method Of Arrival: Ambulatory 9 12:51 Acuity: GIANNA 4 mb9 Triage Assessment: 14:10 General: Appears uncomfortable, Behavior is cooperative, appropriate for age, anxious. bp Pain: Complains of pain in right eye and left eye. EENT: Sclera/Cornea are reddened in right eye and left eye. Neuro: No deficits noted. Cardiovascular: No deficits noted. Respiratory: No deficits noted. GI: No signs and/or symptoms were reported involving the gastrointestinal system. : No signs and/or symptoms were reported regarding the genitourinary system. Derm: No deficits noted. Musculoskeletal: No deficits noted. 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 - Social history:: Smoking status: Patient reports the use of cigarette tobacco products, denies chronic smoking, but will smoke occasionally. - Family history:: not pertinent. - Hospitalizations: : No recent hospitalization is reported. Screenin:10 [facility] ED Fall Risk Assessment (Adult) History of falling in the last 3 months, bp including since admission No falls in past 3 months (0 pts). Abuse screen: Denies threats or abuse. Denies injuries from another. Nutritional screening: No deficits noted. Tuberculosis screening: No symptoms or risk factors identified. Assessment: 12:54 Reassessment: Dr. Devi in triage room speaking to pt. mb9 14:10 Reassessment: PT EYES IRRIGATED WITH SALINE, TOLERATED WELL. bp 15:11 Reassessment: DC HOME AMBULATORY WITH FAMILY. bp Vital Signs: 12:51 BP 135 / 88; Pulse 92; Resp 18; Temp 98.4; Pulse Ox 97% on R/A; Weight 95.25 kg; Height mb9 5 ft. 2 in. ; Pain 6/10; 15:00 BP 127 / 85; Pulse 87; Resp 16; Pulse Ox 98% ; bp 12:51 Body Mass Index 38.41 (95.25 kg, 157.48 cm) mb9 12:51 Pain Scale: Adult mb9 ED Course: 12:48 Patient arrived in ED. mr 12:52 Eduardo Devi MD is Attending Physician. rn 12:53 Triage completed. mb9 12:53 Arm band placed on. mb9 14:06 Neils Maddox, RN is Primary Nurse. bp 14:10 Patient has correct armband on for positive identification. Bed in low position. Call bp light in reach. Adult w/ patient. 15:00 No provider procedures requiring assistance completed. Patient did not have IV access bp during this emergency room visit. Administered Medications: 14:35 Drug: Tetracaine Ophthalmic Drops 0.5 % 1 drops Route: Ophthalmic; Site: both eyes; bp 14:35 Drug: diphenhydrAMINE PO 50 mg Route: PO; bp 15:12 Follow up: Response: No adverse reaction bp 14:35 Drug: predniSONE PO 60 mg Route: PO; bp 15:12 Follow up: Response: No adverse reaction bp Medication: 14:10 VIS not applicable for this client. bp Outcome: 15:00 Discharged to home ambulatory, with family. bp 15:00 Condition: stable 15:00 Discharge instructions given to patient, family, Instructed on discharge instructions, follow up and referral plans. medication usage, Demonstrated understanding of instructions, follow-up care, medications, Prescriptions given X 2. 15:01 Discharge ordered by . rn 15:13 Patient left the ED. bp Signatures: Hui Jeter Roman, MD MD rn Peltier, Brian, RN RN bp Hui Trevino RN RN mb9 Corrections: (The following items were deleted from the chart) 12:57 12:51 Acuity: GIANNA 4 mb9 mb9 12:59 12:51 Acuity: GIANNA 3 mb9 mb9
--- NOTE | 2022-09-09 15:01 | EDPHYS ---
Physician Documentation [facility] Name: Julieta Gauthier Age: 47 yrs Sex: Female : 1975 Arrival Date: 09/09/2022 Time: 12:45 Bed 3 Private MD: ED Physician Eduardo Devi HPI: 09/09 14:50 This 47 yrs old Female presents to ER via Ambulatory with complaints of Eye rn Problem. 14:50 The patient is experiencing burning, redness, tearing, The patient sustained None. to rn both eyes. Onset: The symptoms/episode began/occurred just prior to arrival. Duration: the symptoms are continuous. Aggravated by rubbing, Alleviated by nothing. Associated signs and symptoms: Pertinent positives: None. Pertinent negatives: fever. Patient does not utilize any form of vision correction. Severity of symptoms: At their worst the symptoms were moderate in the emergency department the symptoms are unchanged. The patient has not experienced similar symptoms in the past. Pt reports bug on her face, killed bug on face and swiped at it, shortly after noticed redness of face and clear eye drainage with gritty sensation. Does not wear contacts. No fever. Novice fine prior to bug exposure. . 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 - Social history:: Smoking status: Patient reports the use of cigarette tobacco products, denies chronic smoking, but will smoke occasionally. - Family history:: not pertinent. - Hospitalizations: : No recent hospitalization is reported. ROS: 14:50 Constitutional: Negative for fever, chills, and weight loss, Eyes: + redness and rn drainage Neck: Negative for injury, pain, and swelling, Cardiovascular: Negative for chest pain, palpitations, and edema, Respiratory: Negative for shortness of breath, cough, wheezing, and pleuritic chest pain, Abdomen/GI: Negative for abdominal pain, nausea, vomiting, diarrhea, and constipation, MS/Extremity: Negative for injury and deformity, Skin: Negative for injury, rash, and discoloration, Neuro: Negative for headache, weakness, numbness, tingling, and seizure. Exam: 14:57 Constitutional: This is a well developed, well nourished patient who is awake, alert, rn irritated eyes Head/Face: Normocephalic, atraumatic. Eyes: + bilateral ocular injection and erythema, clear drainage, no foreign body, mild periocular erythema ENT: NO stridor, no oral swelling. Cardiovascular: Regular rate and rhythm. No pulse deficits. Respiratory: No increased work of breathing, no retractions or nasal flaring. Neuro: Awake and alert, GCS 15 Vital Signs: 12:51 BP 135 / 88; Pulse 92; Resp 18; Temp 98.4; Pulse Ox 97% on R/A; Weight 95.25 kg; Height mb9 5 ft. 2 in. ; Pain 6/10; 15:00 BP 127 / 85; Pulse 87; Resp 16; Pulse Ox 98% ; bp 12:51 Body Mass Index 38.41 (95.25 kg, 157.48 cm) mb9 12:51 Pain Scale: Adult mb9 MDM: 12:52 Patient medically screened. rn 14:57 Differential diagnosis: Corneal abrasion of Foreign body in conjunctivitis, acute rn allergic reaction. Data reviewed: vital signs, nurses notes, and as a result, I will discharge patient. Counseling: I had a detailed discussion with the patient and/or guardian regarding: the historical points, exam findings, and any diagnostic results supporting the discharge/admit diagnosis, the need for outpatient follow up, to return to the emergency department if symptoms worsen or persist or if there are any questions or concerns that arise at home. Response to treatment: the patient's symptoms have markedly improved after treatment, and as a result, I will discharge patient. Special discussion: I discussed with the patient/guardian in detail that at this point there is no indication for admission to the hospital. It is understood, however, that if the symptoms persist or worsen the patient needs to return immediately for re-evaluation. 09/09 13:01 Order name: [facility] [place]. Order: eye irrigation; Complete Time: 14:35 rn Administered Medications: 14:35 Drug: Tetracaine Ophthalmic Drops 0.5 % 1 drops Route: Ophthalmic; Site: both eyes; bp 14:35 Drug: diphenhydrAMINE PO 50 mg Route: PO; bp 15:12 Follow up: Response: No adverse reaction bp 14:35 Drug: predniSONE PO 60 mg Route: PO; bp 15:12 Follow up: Response: No adverse reaction bp Disposition Summary: 09/09/22 15:01 Discharge Ordered Location: Home rn Problem: new rn Symptoms: have improved rn Condition: Stable rn Diagnosis - Unspecified acute conjunctivitis, bilateral rn - Acute allergic reaction rn Followup: rn - With: Private Physician - When: As needed - Reason: Recheck today's complaints, Re-evaluation by your physician Discharge Instructions: - Discharge Summary Sheet rn - Allergic Conjunctivitis, Adult rn Forms: - Work release form iw - Medication Reconciliation Form rn - Thank You Letter rn - 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
[2022-09-09 15:33] VITALS: BP 135/88; TEMP 98.4; O2SAT 97
== END 2022-09-09 15:13 | disposition home or self-care (01) ==
LOC: ER 12:45
DX: H10.33 Unspecified acute conjunctivitis, bilateral (principal); F17.210 Nicotine dependence, cigarettes, uncomplicated
CPT/HCPCS: 99283; J7512